=== PATIENT | male | born 1955 | race Caucasian/White ===

== ENCOUNTER 2021-03-30 15:51 | Emergency (ER) | payer BC, SELFPAY ==
[2021-03-30 17:06] VITALS: BP 173/94; PULSE 96; RESP 16; TEMP 36.6; O2SAT 99
--- NOTE | 2021-03-30 17:52 | ED.URI ---
HPI - URI/Sore Throat General Chief Complaint: Upper Respiratory Infection Stated Complaint: Sore Throat,Stuffy Nose,Sinus Time Seen by Provider: 03/30/21 17:30 Source: patient and RN notes reviewed Mode of arrival: ambulatory Limitations: no limitations History of Present Illness HPI Narrative: Edmond is a 65-year-old male patient who ambulated into the [facility]. Patient states has had a sore throat since Friday. Patient states he has a productive cough with green mucus. Patient states his sinuses are becoming sore. Patient has a history of bronchitis. Patient was exposed to family members positive for Covid last week. Related Data Home Medications Medication Instructions Recorded Confirmed atorvastatin 10 mg PO DAILY 03/30/21 03/30/21 losartan 50 mg PO DAILY 03/30/21 03/30/21 omeprazole 20 mg PO DAILY 03/30/21 03/30/21 Allergies Allergy/AdvReac Type Severity Reaction Status Date / Time No Known Allergies Allergy Verified 03/30/21 17:55 Review of Systems Review of Systems: CONSTITUTIONAL: Denies body aches, fever,+ chills, or sweats. EYES: Denies visual changes, redness, or discharge. ENT: Denies rhinorrhea, +congestion, +sore throat, denies otalgia. CARDIOVASCULAR: Denies chest pain, palpitations, or edema. RESPIRATORY: + cough none dyspnea. GASTROINTESTINAL: Denies abdominal pain, nausea, vomiting, or diarrhea. GENITOURINARY: Denies dysuria or hematuria. SKIN: Denies rash, itching, or wounds. MUSCULOSKELETAL: Denies back pain, joint pain, or myalgia. NEUROLOGIC: Denies headache, numbness, tingling, or weakness. PSYCH: Denies depression or anxiety. All systems reviewed & are unremarkable except as noted in HPI and below PMFSH Comments At time of signature, I have reviewed and agree with nursing past medical, surgical, social and family history unless otherwise noted. Please see nursing chart for further information. There is no relevant family history pertinent to the presenting complaint Exam Narrative: GENERAL: Well-appearing, well-nourished, and in no acute distress. HEAD: Normocephalic, atraumatic. EYES: EOMI. No redness or drainage. Conjunctivae normal. ENT: Mucous membranes pink and moist. Nares clear. No rhinorrhea. Bilateral tympanic membranes are dull with no fluid noted. No erythema is noted. Posterior pharynx is erythemic with mild edema moderate amount of thick white postnasal drainage is noted. Uvula midline. NECK: Normal AROM. Supple. No lymphadenopathy. CHEST: No respiratory distress. Clear to auscultation with occasional bilateral wheeze. HEART: Regular rate and rhythm. No murmur appreciated. Normal peripheral pulses. ABDOMEN: Soft, nontender, nondistended, normal active bowel sounds. MUSCULOSKELETAL: No bony tenderness. EXTREMITIES: Normal range of motion. No edema. SKIN: Warm, dry, no rash. Capillary refill normal. Normal skin turgor. NEURO: No focal deficits. Alert and oriented x3. Gait steady. PSYCH: Normal affect. No signs of depression or anxiety. Course Vital Signs Vital signs: Vital Signs Temperature 36.6 C 03/30/21 17:06 Pulse Rate 96 03/30/21 17:06 Respiratory Rate 16 03/30/21 17:06 Blood Pressure 173/94 H 03/30/21 17:06 Pulse Oximetry 99 03/30/21 17:06 Temperature 36.6 C 03/30/21 17:06 Pulse Rate 96 03/30/21 17:06 Respiratory Rate 16 03/30/21 17:06 Blood Pressure 173/94 H 03/30/21 17:06 Pulse Oximetry 99 03/30/21 17:06 MDM - URI/Sore Throat MDM Narrative Medical decision making narrative: Patient's rapid COVID-19 is positive. He will be given albuterol and prednisone. Patient to notify his primary care physician on Friday of his Covid positive status. Go to the ER immediately Differential Diagnosis Differential diagnosis: Likely upper respiratory infection, otitis media, viral infection and other Lab Data Labs: Lab Results 03/30/21 Range/Units 17:30 POC SARS CoV-2 Ag Positive (Negative) St
== END 2021-03-30 18:00 | disposition home or self-care (01) ==
PROVIDERS: Emergency Provider Nurse Practitioner Family; PCP Internal Medicine
DX: U07.1 COVID-19 (principal)
CPT/HCPCS: 87081; 87426; 87804; 87880; 99213; C9803; G0463

== ENCOUNTER 2021-04-07 12:03 | Inpatient (IN) | payer BC, SELFPAY ==
[2021-04-07] VITALS (17 sets, daily range): BP systolic 128–153; BP diastolic 70–96; PULSE 68–97; RESP 19–36; TEMP 36.9–37; O2SAT 89–98; BMI 28.9
--- NOTE | ~2021-04-07 | XR_ITS ---
EXAMINATION: XR chest 1V portable DATE: 04/13/2021 07:58 INDICATION: COVID pneumonia TECHNIQUE: frontal view of the chest was obtained. COMPARISON: Chest radiograph dated 04/09/2021 FINDINGS: No significant interval change in diffuse bilateral patchy airspace opacities consistent with COVID p neumonia. No pleural effusion or pneumothorax. The cardiomediastinal silhouette is normal. IMPRESSION: 1. Unchanged diffuse bilateral lung disease consistent with COVID 19 pneumonia. Reviewed, dictated and finalized at location A. TRONIC PARTS DESIGNER
--- NOTE | ~2021-04-07 | CT_ITS ---
EXAMINATION: CTA chest PE protocol DATE: 04/07/2021 14:12 INDICATION: Shortness of breath. COVID-19 pneumonia. TECHNIQUE: Computed tomography angiography (CTA) of the chest was performed with 100 mL Omnipaque-350 intravenous contrast timed to evaluate the pulmonary arteries. Coronal maximum intensity projection 3D-reconstructions were created by the technologist. Automated exposure control and iterative reconst ruction technique were employed. The dose-length product was 445.45 mGy-cm. COMPARISON: None. FINDINGS: The visualized portions of the lung bases demonstrate patchy groundglass opacities and craz y paving involving all lobes and airspace opacities in the lower lobes. There are small right and tra ce left pleural effusions. The heart size is normal. No pericardial effusion. There is no pulmonary e mbolus. There is a small sliding hiatal hernia. There are cysts in right kidney measuring up to 4.9 c m. There is mild thoracic spondylosis. IMPRESSION: 1. No pulmonary embolus. Sensitivity is moderately decreased in the segmental arteries by motion sam fact. 2. Diffuse lung disease, consistent with COVID-19 pneumonia. 3. Small right and trace left pleural effusions. Reviewed, dictated and finalized at location A. RTMENT MANAGER IMPRESSION: 1. No pulmonary embolus. Sensitivity is moderately decreased in the segmental a rteries by motion artifact. 2. Diffuse lung disease, consistent with COVID-19 pneumonia. 3. Small right and trace left pleural effusions.
--- NOTE | ~2021-04-07 | XR_ITS ---
EXAMINATION: XR chest 1V portable DATE: 04/09/2021 12:27 INDICATION: COVID-19 pneumonia. TECHNIQUE: A single frontal view of the chest was obtained. COMPARISON: Chest single view 04/07/2021, chest CT 04/07/2021 FINDINGS: The lung volumes are small. There are airspace opacities in all lung zones bilaterally, wor st in the mid and lower lung zones. No pleural effusion or pneumothorax. The heart size is normal. IMPRESSION: 1. Stable diffuse lung disease, consistent with COVID-19 pneumonia. Reviewed, dictated and finalized at location B. NCT POLITICAL SCIENCE INSTRUCTOR
--- NOTE | ~2021-04-07 | XR_ITS ---
EXAMINATION: XR chest 1V portable DATE: 04/07/2021 13:01 INDICATION: Dyspnea. COVID-19 pneumonia. TECHNIQUE: A single frontal view of the chest was obtained. COMPARISON: None. FINDINGS: There are airspace opacities in all lung zones bilaterally, worst in the mid and lower lung zones. No pleural effusion or pneumothorax. The heart size is normal. IMPRESSION: 1. Diffuse lung disease, consistent with COVID-19 pneumonia. Reviewed, dictated and finalized at location A. CAL ASSOCIATE
--- NOTE | ~2021-04-07 | XR_ITS ---
XR chest 1V portable DATE: 04/16/2021 11:45 INDICATION: Dyspnea TECHNIQUE: Portable AP chest on 04/16/2021 1140 hours COMPARISON: 04/13/2021 portable AP chest at 0736 hours FINDINGS: There are extensive diffuse patchy bilateral pulmonary infiltrates which appear minimally i mproved since 04/13/2021. Normal heart size. No pleural effusion. No pneumothorax. Diffuse osteopenia. IMPRESSION: Minimal improvement of extensive patchy bilateral pulmonary infiltrates since 04/13/2021 Reviewed, dictated and finalized at location A. F TECHNICIAN IMPRESSION: Minimal improvement of extensive patchy bilateral pulmonary infiltr ates since 04/13/2021
--- NOTE | 2021-04-07 12:09 | ECG_ITS ---
Measurements Intervals Brooks Rate: 92 P: 27 MI: 155 QRS: -15 QRSD: 102 T: 0 QT: 352 QTc: 436 Interpretive Statements SINUS RHYTHM INCOMPLETE RIGHT BUNDLE BRANCH BLOCK VOLTAGE CRITERIA FOR LVH BORDERLINE R WAVE PROGRESSION, ANTERIOR LEADS BORDERLINE T WAVE ABNORMALITY- ANT/INF LEADS BASELINE ARTIFACT- II, III, AVR, AVF, V1-V6 BORDERLINE ECG Electronically Signed On 04-07-2021 12:31:58 DENSITY CONTROL PUNCHER by Seth Barlow D.O.
--- NOTE | 2021-04-07 12:16 | ED.SOB ---
HPI - SOB/Dyspnea General Chief Complaint: Shortness of Breath/Dyspnea Stated Complaint: dyspnea Time Seen by Provider: 04/07/21 12:13 Source: patient Mode of arrival: ambulatory Limitations: no limitations History of Present Illness HPI Narrative: Patient is a 65-year-old male complaining of worsening shortness of breath worse with exertion, that started 1 week ago. Patient states that he was diagnosed with Covid 8 days ago. Related Data Home Medications Medication Instructions Recorded Confirmed atorvastatin 10 mg PO DAILY 03/30/21 03/30/21 losartan 50 mg PO DAILY 03/30/21 03/30/21 omeprazole 20 mg PO DAILY 03/30/21 03/30/21 Allergies Allergy/AdvReac Type Severity Reaction Status Date / Time No Known Allergies Allergy Verified 04/07/21 12:09 Review of Systems Review of Systems: All systems reviewed & are unremarkable except as noted in HPI and below Constitutional: Constitutional: Denies chills, Denies excessive sweating, Denies fever(s), Denies headache(s), Denies lethargy, Denies malaise, Denies weakness and Denies weight loss Eyes: Eyes: Denies blurry vision, Denies change in vision and Denies loss of vision ENT: Denies dizziness, Denies ear discharge, Denies headache(s), Denies lip swelling, Denies epistaxis, Denies nasal congestion, Denies neck pain, Denies throat swelling and Denies tongue swelling Cardiovascular: Cardiovascular: Denies chest pain, Denies chest pain at rest, Denies chest pain with activity, Denies diaphoresis, Denies rapid heart rate, Denies edema, Denies irregular heart rhythm, Denies lightheadedness, Denies palpitations, Denies dyspnea and Denies dyspnea on exertion Respiratory: Respiratory: Denies chest congestion, Denies hemoptysis, Denies dyspnea and Denies dyspnea on exertion Gastrointestinal: Gastrointestinal: Denies abdominal pain, Denies melena, Denies hematochezia, Denies diarrhea, Denies nausea, Denies vomiting and Denies hematemesis Musculoskeletal: Musculoskeletal: Denies abnormal gait, Denies deformity, Denies joint swelling, Denies limited range of motion, Denies neck pain and Denies numbness Neurologic: Denies Abnormal speech present, Denies abnormal gait, Denies confusion, Denies dizziness, Denies headache(s), Denies focal weakness, Denies loss of vision, Denies numbness, Denies Other visual disturbances, Denies Sensory deficit (Neuro) and Denies weakness Psychiatric: Psychiatric: Denies confusion, Denies depression, Denies auditory hallucinations, Denies homicidal ideation and Denies suicidal ideation Endocrine: Endocrine: Denies cold intolerance, Denies excessive sweating, Denies fatigue, Denies heat intolerance and Denies palpitations Hematologic/Lymphatic: Hematologic/Lymphatic: Denies easy bleeding and Denies easy bruising Allergic/Immunologic: Allergic/Immunologic: Denies lip swelling, Denies throat swelling and Denies tongue swelling PMFSH Comments Past medical history: Hypertension Family history: Hypertension Social history: Non-smoker occasional EtOH use, no drug use Exam Const: General: cooperative, healthy appearing, comfortable, no acute distress, well developed, alert and awake; No confusion Orientation/consciousness: oriented to person, oriented to place, oriented to time, patient oriented x3 and No confusion Limitations: no limitations HENMT: Head: normal to inspection, normocephalic and atraumatic Ears: hearing grossly normal bilaterally, TM normal on the right and TM normal on the left General nose exam: Normal external nose present, Normal nares present and No nasal discharge present Face and sinus: normal facial exam Mouth: Yes Normal oral and palatal mucosa present, Yes lip normal, Yes tongue normal and Yes oropharynx normal Throat: posterior oropharynx normal, tonsils normal and uvula midline Eyes: General: appearance normal, both eyes and all related structures Pupils: Equal, round and reactive pupils present EOM: EOMs intact bilaterally Neck: N
[2021-04-07] MEDS: DEXAMETHASONE SOD PHOS INJ 4 MG/ML VIAL 10 MG IV PUSH (12:31)
[2021-04-07 12:33] LABS: Basophils Absolute Auto 0.1 K/mm3 (0.0-0.1); Basophils Percent Auto 0.3 % (0.2-1.2); Eosinophils Percent Auto 0.1 % (0-4.4); Hematocrit 44.3 % (42.0-52.0); Hemoglobin 15.4 g/dL (14.0-18.0); Immature Granulocyte Absolute 0.18 K/mm3 (0.00-0.031); Lymphocytes Absolute Auto 0.73 K/mm3 (0.9-3.2); Mean Corpuscular HGB Conc 34.8 g/dl (32-36); Mean Corpuscular Volume 92.1 fl (80-100); Mean Platelet Volume 10.2 fl (7.4-10.4); Monocytes Absolute Auto 0.7 K/mm3 (0.1-0.6); Monocytes Percent Auto 3.8 % (2.6-8.5); Neutrophils Absolute Auto 16.4 K/mm3 (1.3-6.7); Neutrophils Percent Auto 90.8 % (45.5-73.1); Platelet Count Result 192 k/mm3 (150-375); Red Blood Count 4.81 M/mm3 (4.6-6.20); Red Cell Distribution Width 12.8 % (11.5-14.5); White Blood Count 18.1 K/mm3 (4.5-10.0)
[2021-04-07 12:42] LABS: Alanine Aminotransferase 51 U/L (4-50); Alkaline Phosphatase 74 U/L (38-126); Anion Gap 12 mmol/L (8-16); Aspartate Amino Transferase 40 U/L (17-59); Bilirubin,Total 0.7 mg/dL (0.2-1.3); Blood Urea Nitrogen 20 mg/dL (9-20); Calcium 9.7 mg/dL (8.4-10.2); Carbon Dioxide 20 mmol/L (22-30); Chloride 102 mmol/L (98-107); Estimated CRCL calculation 67 ml/min; Estimated Glomerular Filt Rate > 60; Glucose 125 mg/dL (65-110); Potassium 3.8 mmol/L (3.4-5.0); Sodium 134 mmol/L (137-145)
[2021-04-07 12:53] LABS: Troponin I < 0.012 ng/mL (0.000-0.034)
[2021-04-07 12:54] LABS: Alveolar/Arterial O2 Gradient 102.6 mmHg; Base Excess ABG -1.5 mEq/l (+/-2.0); Carboxyhemoglobin 0.8 % THb (0-2.0); Fractional Inspired Oxygen 28 %; HCO3 ABG 20.4 mEq/l (22.0-26.0); Methemoglobin ABG 0.4 %THb (0-1.5); Oxygen Content ABG 20.5 %vol (16.0-22.0); Oxygen Saturation ABG 94.3 % (95.0-100.0); Oxyhemoglobin 92.3 % THb (90.0-100.0); PCO2 ABG 27.7 mmHg (35.0-45.0); PO2 ABG 64.4 mmHg (80.0-100.0); Reduced Hemoglobin 6.5 %THb (0-5.0); Site Drawn LEFT RADIAL; Total Hemoglobin 15.8 g/dL (12.0-18.0); pH ABG 7.484 (7.350-7.450)
[2021-04-07 12:55] LABS: Device NASAL CANNULA; Modified Allen's Test Pass
[2021-04-07 12:59] LABS: INR 1.1; Prothrombin Time 14.3 Seconds (11.1-14.7)
[2021-04-07 13:00] LABS: Partial Thromboplastin Time 30.8 SECONDS (22.3-36.8)
[2021-04-07] MEDS: SODIUM CHLORIDE 0.9% IV 1,000 ML 250 ML IV CONT (14:59)
[2021-04-07] MEDS: REMDESIVIR 200 MG/NS 250 ML 200 MG/250 ML BAG 250 MG IVPB (15:12)
[2021-04-07 16:09] LABS: Troponin I < 0.012 ng/mL (0.000-0.034)
[2021-04-07 16:19] LABS: CRP 26.7 mg/dL (<1.0)
[2021-04-07 16:40] LABS: Lactate Dehydrogenase 505 U/L (313-618)
[2021-04-07 16:43] LABS: Procalcitonin 0.2 ng/mL
--- NOTE | 2021-04-07 19:10 | ADMGEN ---
This patient, Vamsi Ballard, was admitted to [address] [place] [address] Room 300-01 at 1840. Patient/family oriented to hospital policies and general routines including ID bracelet, bed and alarms, visiting hours, pain management, procedures, bathroom and other care routines, personal items, smoking policy, room service/diet, and visiting hours. Information on how to activate the Rapid Response Team has been discussed. Patient/Family are encouraged to report perceived risks to care and to ask questions if they do not understand what they are told or what they should do.
--- NOTE | 2021-04-07 21:30 | PM.IMHP ---
H&P: HPI History of Present Illness Date/Time: 04/07/21 21:30 Chief Complaint: Shortness of breath. Narrative: This is a very pleasant 65-year-old male with hypertension, hyperlipidemia, Lyme disease, and GERD who presented to the emergency department earlier today via private vehicle from home for evaluation of shortness of breath. He has not been feeling well for nearly 10 days with multiple symptoms to include generalized malaise, sore throat, congestion, decreased appetite, diarrhea, body aches, fever, and cough occasionally productive of clear sputum. He tested positive for COVID-19 at a local urgent care last Friday and he was prescribed doxycycline and prednisone at that time. He felt a bit better earlier on this week however over the last 2 days he has felt much worse with increasing shortness of breath, pleuritic chest pain, and a pretty continuous cough. On arrival to the emergency department today his SpO2 was 89% on room air and he is now on 2 L nasal cannula with an SpO2 in the low 90s. CTA of the chest showed diffuse lung disease consistent with COVID pneumonia and he is being admitted in this setting. He has not yet received a COVID vaccination. Review of Systems Review of Systems: Twelve systems were reviewed and are negative except for as per HPI. [facility] Past Medical History Medical History (Updated 04/07/21 @ 22:14 by Chioma Mitchell PA-C) Gastroesophageal reflux disease Hyperlipidemia Hypertension Lyme disease (09/2020) Surgical History Surgical History (Updated 04/07/21 @ 22:14 by Chioma Mitchell PA-C) History of arthroscopy of right knee Family History Family History (Updated 04/07/21 @ 22:14 by Chioma Mitchell PA-C) Other Hypertension Social History Social History (Updated 04/07/21 @ 22:16 by Chioma Mitchell PA-C) Social History: The patient is and lives with his in [place]. 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 Nonsmoker. Consumes approximately 3 to 4 alcoholic beverages a week. No illicit substance use. He designates his , Prinecss Crowe, as his surrogate decision maker. Code status: Full code. Meds Home Medications and Allergies Home Medications Medication Instructions Recorded Confirmed Type albuterol sulfate [ProAir HFA] 2 puff INHALATION QID PRN #8.5 g 12/31/21 01/08/22 Rx atorvastatin 10 mg PO DAILY 03/30/21 04/07/21 History losartan 50 mg PO DAILY 03/30/21 04/07/21 History omeprazole 20 mg PO DAILY 03/30/21 04/07/21 History prednisone 50 mg PO DAILY 7 Days #7 tablet 03/30/21 04/07/21 Rx Allergies Allergy/AdvReac Type Severity Reaction Status Date / Time No Known Allergies Allergy Verified 04/07/21 12:09 Vital Signs Vital Signs - 24 hr 04/07/21 12:04 04/07/21 12:19 04/07/21 12:27 Temperature 98.6 F Pulse Rate 97 95 90 Respiratory Rate 19 36 H Blood Pressure 153/96 H Pulse Oximetry 89 L 93 94 04/07/21 13:07 04/07/21 13:15 04/07/21 13:16 Temperature Pulse Rate 88 86 88 Respiratory Rate 33 H 32 H 34 H Blood Pressure 130/83 Pulse Oximetry 92 91 91 04/07/21 13:30 04/07/21 13:31 04/07/21 13:45 Temperature Pulse Rate 83 90 88 Respiratory Rate 32 H 30 H 31 H Blood Pressure 128/79 Pulse Oximetry 92 94 92 04/07/21 13:46 04/07/21 13:47 04/07/21 15:31 Temperature Pulse Rate 89 86 74 Respiratory Rate 32 H 32 H 33 H Blood Pressure 133/83 130/84 Pulse Oximetry 91 92 98 04/07/21 16:06 04/07/21 16:15 04/07/21 16:17 Temperature Pulse Rate 71 74 68 Respiratory Rate 35 H 33 H 27 H Blood Pressure 148/75 H Pulse Oximetry 95 94 95 04/07/21 18:26 04/07/21 20:00 Temperature 98.4 F Pulse Rate 74 84 Respiratory Rate 24 H 20 Blood Pressure 146/89 H 136/70 Pulse Oximetry 97 90 Exam Narrative: General: Moderately ill-appearing male sitting up in bed. Weight: 81.4 kg. BMI: 29.0. HEENT: PERRL, EOMI. Sclerae anicteric. Conjunctiva mildly injected. Oral mucosa moist. Oropharynx freeman
[2021-04-08] VITALS (8 sets, daily range): BP systolic 122–140; BP diastolic 66–79; PULSE 64–87; RESP 18–20; TEMP 36.2–38.3; O2SAT 88–94
[2021-04-08 06:20] LABS: Hematocrit 39.5 % (42.0-52.0); Hemoglobin 13.6 g/dL (14.0-18.0); Mean Corpuscular HGB Conc 34.4 g/dl (32-36); Mean Corpuscular Hemoglobin 31.6 pg (26-34); Mean Corpuscular Volume 91.9 fl (80-100); Mean Platelet Volume 10.2 fl (7.4-10.4); Platelet Count Result 188 k/mm3 (150-375); Red Cell Distribution Width 12.9 % (11.5-14.5); White Blood Count 14.2 K/mm3 (4.5-10.0)
[2021-04-08 06:30] LABS: INR 1.1; Prothrombin Time 14.2 Seconds (11.1-14.7)
[2021-04-08 06:44] LABS: Alanine Aminotransferase 41 U/L (4-50); Albumin Level 3.5 g/dL (3.5-5.1); Alkaline Phosphatase 59 U/L (38-126); Anion Gap 9 mmol/L (8-16); Aspartate Amino Transferase 30 U/L (17-59); Bilirubin,Total 0.5 mg/dL (0.2-1.3); Blood Urea Nitrogen 21 mg/dL (9-20); CRP 24.8 mg/dL (<1.0); Carbon Dioxide 22 mmol/L (22-30); Chloride 104 mmol/L (98-107); Estimated CRCL calculation 66 ml/min; Estimated Glomerular Filt Rate > 60; Glucose 124 mg/dL (65-110); Lactate Dehydrogenase 551 U/L (313-618); Magnesium 2.2 mg/dL (1.6-2.3); Potassium 3.9 mmol/L (3.4-5.0); Sodium 135 mmol/L (137-145)
[2021-04-08] MEDS: DEXAMETHASONE 0.5 MG TABLET 2 MG PO (08:15)
[2021-04-08] MEDS: LOSARTAN POTASSIUM 50 MG TABLET PO (08:15)
[2021-04-08] MEDS: PANTOPRAZOLE 40 MG TABLET PO (08:15)
[2021-04-08] MEDS: DEXAMETHASONE 4 MG TABLET PO (08:15)
[2021-04-08] MEDS: ENOXAPARIN 40 MG/0.4 ML SYRINGE SUB-Q (08:16)
[2021-04-08] MEDS: ATORVASTATIN 10 MG TABLET PO (08:16)
[2021-04-08] MEDS: ACETAMINOPHEN 325 MG TABLET 650 MG PO ×2 (09:32→20:36)
[2021-04-08] MEDS: guaiFENesin 12 HR 600 MG TABCR PO ×2 (09:32→20:36)
[2021-04-08] MEDS: REMDESIVIR 100 MG/NS 250 ML 100 MG/250 ML BAG 250 MG IVPB (10:15)
--- NOTE | 2021-04-08 12:53 | PM.IMPN ---
Progress Note: A&P Assessment and Plan (1) Acute respiratory failure with hypoxia: Code(s): J96.01 - Acute respiratory failure with hypoxia Status: Acute Assessment and Plan: Secondary to COVID pneumonia. No pulmonary embolism noted on chest CTA and though sensitivity was moderately decreased due to motion in the segmental arteries, PE is felt to be unlikely. He is currently requiring 3 L per nasal cannula to keep SpO2 in the low to mid 90s. Wean oxygen as tolerated. Goal sats 92% or above (2) Pneumonia due to 2019 novel coronavirus: Code(s): U07.1 - COVID-19; J12.82 - Pneumonia due to coronavirus disease 2019 Status: Acute Assessment and Plan: Positive outpatient test 03/30/21 with symptom onset 10 days prior to presentation. CXR shows diffuse lung disease consistent with COVID 19 pneumonia Continue dexamethasone and remdesivir #2. Monitor LFTs while on remdesivir. ALT is normal Given symptom onset and elevated white blood cell count, continue treatment with ceftriaxone and azithromycin for concomitant bacterial pneumonia Sputum culture is pending Trend inflammatory markers Supportive care to include bronchodilators, expectorants, antipyretics, incentive spirometry Continue isolation precautions Patient has not been vaccinated for COVID-19 (3) Hypertension: Code(s): I10 - Essential (primary) hypertension Status: Acute Assessment and Plan: Blood pressures were reviewed and they are stable. Last BP 131/79 Continue losartan Monitor blood pressures daily. (4) Hyperlipidemia: Code(s): E78.5 - Hyperlipidemia, unspecified Status: Acute Assessment and Plan: LFTs within normal limits. Continue statin Subjective Date/time seen: 04/08/21 12:53 Interval history: Date of service: 04/08/2021 Vamsi Crowe is a 65-year-old male with a history of hypertension, hyperlipidemia, Lyme disease, and GERD who is seen in follow-up for COVID-19 pneumonia. He is starting to feel a bit better today. His shortness of breath has improved, though he does endorse dyspnea on exertion. Also endorses conversational dyspnea. He has a productive cough with mostly white sputum, though states sometimes it is yellow-greenish. This morning, he was having chills. He was also noted to have a low-grade fever. He denies nausea or vomiting. No abdominal pain. No diarrhea. Denies chest pain. No palpitations. He does have some neck discomfort from lying in bed. He had a hard time sleeping last night and he relates this to being on steroids. His appetite has been good. He has no other concerns at this time. We had a long talk about managing COVID-19 and what to expect while he was hospitalized. With the patient's permission, I also spoke with his daughter, Genesis to provide updates answer questions. Review of Systems Review of Systems: All systems reviewed & are unremarkable except as noted in HPI and below Exam Narrative: Mr. Crowe is a well-nourished, well-appearing 65-year-old male who is lying supine in bed. He appears comfortable and is in NARD. Neuro: awake, alert and oriented x4, speech clear, no focal neuro deficits noted HEENMT: normocephalic, atraumatic, EOMI, sclerae anicteric Neck: supple, no lymphadenopathy Respiratory: Diminished breath sounds bilaterally, nonlabored breathing Cardio: regular rate, regular rhythm with S1-S2 Abdomen: nondistended, normoactive bowel sounds, soft, nontender to palpation Extremities: no edema, erythema, or tenderness to palpation, DP pulses 2+ bilaterally Skin: no rashes or lesions, warm and dry Psych: appropriate mood and affect, judgment and insight intact Objective Data Vital Signs Vital Signs: Vital Signs - 24 hr 04/07/21 13:07 04/07/21 13:15 04/07/21 13:16 Temperature Pulse Rate 88 86 88 Respiratory Rate 33 H 32 H 34 H Blood Pressure 130/83 Pulse Oximetry 92 91 91
[2021-04-09] VITALS (10 sets, daily range): BP systolic 111–136; BP diastolic 66–82; PULSE 59–70; RESP 14–22; TEMP 36.2–37.2; O2SAT 85–97
[2021-04-09 06:51] LABS: Hematocrit 40.5 % (42.0-52.0); Hemoglobin 14.2 g/dL (14.0-18.0); Mean Corpuscular HGB Conc 35.1 g/dl (32-36); Mean Corpuscular Hemoglobin 32.3 pg (26-34); Mean Corpuscular Volume 92.3 fl (80-100); Platelet Count Result 216 k/mm3 (150-375); Red Blood Count 4.39 M/mm3 (4.6-6.20); Red Cell Distribution Width 12.8 % (11.5-14.5); White Blood Count 16.6 K/mm3 (4.5-10.0)
[2021-04-09 07:05] LABS: INR 1.3; Prothrombin Time 15.5 Seconds (11.1-14.7)
[2021-04-09 07:24] LABS: Alanine Aminotransferase 41 U/L (4-50); Albumin Level 3.6 g/dL (3.5-5.1); Alkaline Phosphatase 63 U/L (38-126); Anion Gap 10 mmol/L (8-16); Aspartate Amino Transferase 30 U/L (17-59); Bilirubin,Total 0.5 mg/dL (0.2-1.3); Blood Urea Nitrogen 26 mg/dL (9-20); CRP 11.6 mg/dL (<1.0); Carbon Dioxide 22 mmol/L (22-30); Chloride 105 mmol/L (98-107); Estimated CRCL calculation 66 ml/min; Estimated Glomerular Filt Rate > 60; Glucose 115 mg/dL (65-110); Potassium 4.1 mmol/L (3.4-5.0); Sodium 137 mmol/L (137-145)
[2021-04-09] MEDS: ACETAMINOPHEN 325 MG TABLET 650 MG PO ×2 (08:24→19:38)
[2021-04-09] MEDS: ENOXAPARIN 40 MG/0.4 ML SYRINGE SUB-Q (08:25)
[2021-04-09] MEDS: DEXAMETHASONE 0.5 MG TABLET 2 MG PO (08:25)
[2021-04-09] MEDS: DEXAMETHASONE 4 MG TABLET PO (08:25)
[2021-04-09] MEDS: LOSARTAN POTASSIUM 50 MG TABLET PO (08:25)
[2021-04-09] MEDS: PANTOPRAZOLE 40 MG TABLET PO (08:25)
[2021-04-09] MEDS: ATORVASTATIN 10 MG TABLET PO (08:25)
[2021-04-09] MEDS: guaiFENesin 12 HR 600 MG TABCR PO ×2 (08:25→19:48)
[2021-04-09] MEDS: ALBUTEROL SULFATE (*SP) INHALER 2 PUFF INHALATION (10:24)
--- NOTE | 2021-04-09 11:10 | PM.IMPN ---
Progress Note: A&P Assessment and Plan (1) Acute respiratory failure with hypoxia: Code(s): J96.01 - Acute respiratory failure with hypoxia Status: Acute Assessment and Plan: Secondary to COVID pneumonia. No pulmonary embolism noted on chest CTA and though sensitivity was moderately decreased due to motion in the segmental arteries, PE is felt to be unlikely. Previously requiring 3 L O2. He had increased O2 demand today and now requires 12 L per nasal cannula Will proceed with continuous pulse oximetry monitoring Wean oxygen as tolerated. Goal sats 92% or above (2) Pneumonia due to 2019 novel coronavirus: Code(s): U07.1 - COVID-19; J12.82 - Pneumonia due to coronavirus disease 2019 Status: Acute Assessment and Plan: Positive outpatient test 03/30/21 with symptom onset 10 days prior to presentation. CXR shows diffuse lung disease consistent with COVID 19 pneumonia Continue dexamethasone and remdesivir #3. Monitor LFTs while on remdesivir. ALT is normal Initiate baricitinib given increased oxygen demand Repeat CXR to reassess Continue treatment with ceftriaxone and azithromycin for concomitant bacterial pneumonia given symptom onset and leukocytosis. Slight increase in WBC again today which could be related to steroids Sputum culture not performed due to oropharyngeal contamination Trend inflammatory markers Supportive care to include bronchodilators, expectorants, antipyretics, incentive spirometry Continue isolation precautions Patient has not been vaccinated for COVID-19 (3) Hypertension: Code(s): I10 - Essential (primary) hypertension Status: Acute Assessment and Plan: Blood pressures were reviewed and they are stable. Last BP 136/82 Continue losartan Monitor blood pressures daily. (4) Hyperlipidemia: Code(s): E78.5 - Hyperlipidemia, unspecified Status: Acute Assessment and Plan: LFTs within normal limits. Continue statin Subjective Date/time seen: 04/09/21 11:10 Interval history: Date of service: 04/09/2021 Vamsi Crowe is a 65-year-old male with a history of hypertension, hyperlipidemia, Lyme disease, and GERD who is seen in follow-up for COVID-19 pneumonia. He had increased oxygen requirements this morning. He was feeling well last night and slept well through the night but this morning woke up feeling poorly. He had increased shortness of breath. He endorses occasional cough. Denies fever, chills, sweats, nausea, vomiting. Denies dizziness or lightheadedness. He has poor appetite but is trying to eat regularly. At the patients request, I spoke with his Princess via phone for 15 minutes to provide updates and answer questions. Review of Systems Review of Systems: All systems reviewed & are unremarkable except as noted in HPI and below Exam Narrative: Mr. Crowe is a well-nourished, well-appearing 65-year-old male who is lying supine in bed. He appears comfortable and is in NARD. Neuro: awake, alert and oriented x4, speech clear, no focal neuro deficits noted HEENMT: normocephalic, atraumatic, EOMI, sclerae anicteric Neck: supple, no lymphadenopathy Respiratory: Diminished breath sounds bilaterally, nonlabored breathing, able to speak in complete sentences, no accessory muscle use or retractions Cardio: regular rate, regular rhythm with S1-S2 Abdomen: nondistended, normoactive bowel sounds, soft, nontender to palpation Extremities: no edema, erythema, or tenderness to palpation, DP pulses 2+ bilaterally Skin: no rashes or lesions, warm and dry Psych: appropriate mood and affect, judgment and insight intact Objective Data Vital Signs Vital Signs: Vital Signs - 24 hr 04/08/21 12:00 04/08/21 16:00 04/08/21 16:55 Temperature 97.1 F L 97.3 F L Pulse Rate 70 64 Respiratory Rate 18 18 Blood Pressure 132/76 122/66 Pulse Oximetry 94 88 L 90 04/08/21 20:00 04/09/21 00:00 04/09/21 00
[2021-04-09] MEDS: REMDESIVIR 100 MG/NS 250 ML 100 MG/250 ML BAG 250 MG IVPB (11:31)
[2021-04-09 11:58] LABS: Basophils Percent Auto 0.1 % (0.2-1.2); Eosinophils Percent Auto 0.1 % (0-4.4); Hematocrit 39.7 % (42.0-52.0); Hemoglobin 13.9 g/dL (14.0-18.0); Immature Granulocyte Absolute 0.13 K/mm3 (0.00-0.031); Immature Granulocyte Percent A 0.8 % (0-0.5); Lymphocytes Absolute Auto 0.81 K/mm3 (0.9-3.2); Lymphocytes Percent Auto 4.9 % (18.3-44.2); Mean Corpuscular Hemoglobin 32.3 pg (26-34); Mean Corpuscular Volume 92.3 fl (80-100); Mean Platelet Volume 10.3 fl (7.4-10.4); Monocytes Absolute Auto 0.8 K/mm3 (0.1-0.6); Monocytes Percent Auto 5.1 % (2.6-8.5); Neutrophils Absolute Auto 14.7 K/mm3 (1.3-6.7); Platelet Count Result 199 k/mm3 (150-375); Red Cell Distribution Width 12.9 % (11.5-14.5); White Blood Count 16.5 K/mm3 (4.5-10.0)
[2021-04-09 12:12] LABS: Alanine Aminotransferase 38 U/L (4-50); Aspartate Amino Transferase 34 U/L (17-59); Estimated CRCL calculation 73 ml/min; Estimated Glomerular Filt Rate > 60
[2021-04-09] MEDS: BARICITINIB 2 MG TABLET 4 MG PO (16:32)
[2021-04-10] VITALS (9 sets, daily range): BP systolic 101–122; BP diastolic 60–73; PULSE 54–94; RESP 14–18; TEMP 36.1–36.8; O2SAT 85–95
[2021-04-10 05:54] LABS: Basophils Percent Auto 0.2 % (0.2-1.2); Eosinophils Percent Auto 0.1 % (0-4.4); Hemoglobin 13.9 g/dL (14.0-18.0); Immature Granulocyte Absolute 0.18 K/mm3 (0.00-0.031); Immature Granulocyte Percent A 1.1 % (0-0.5); Lymphocytes Absolute Auto 1.45 K/mm3 (0.9-3.2); Lymphocytes Percent Auto 8.9 % (18.3-44.2); Mean Corpuscular HGB Conc 33.9 g/dl (32-36); Mean Corpuscular Hemoglobin 31.9 pg (26-34); Mean Platelet Volume 10.6 fl (7.4-10.4); Monocytes Absolute Auto 0.7 K/mm3 (0.1-0.6); Monocytes Percent Auto 4.2 % (2.6-8.5); Neutrophils Percent Auto 85.5 % (45.5-73.1); Platelet Count Result 216 k/mm3 (150-375); Red Blood Count 4.36 M/mm3 (4.6-6.20); Red Cell Distribution Width 12.7 % (11.5-14.5); White Blood Count 16.4 K/mm3 (4.5-10.0)
[2021-04-10 06:05] LABS: INR 1.3; Prothrombin Time 15.5 Seconds (11.1-14.7)
[2021-04-10 06:07] LABS: Alanine Aminotransferase 38 U/L (4-50); Albumin Level 3.4 g/dL (3.5-5.1); Alkaline Phosphatase 52 U/L (38-126); Anion Gap 7 mmol/L (8-16); Aspartate Amino Transferase 27 U/L (17-59); Bilirubin,Total 0.5 mg/dL (0.2-1.3); Blood Urea Nitrogen 25 mg/dL (9-20); CRP 6.3 mg/dL (<1.0); Calcium 8.7 mg/dL (8.4-10.2); Carbon Dioxide 24 mmol/L (22-30); Chloride 104 mmol/L (98-107); Estimated CRCL calculation 66 ml/min; Estimated Glomerular Filt Rate > 60; Glucose 102 mg/dL (65-110); Lactate Dehydrogenase 593 U/L (313-618); Potassium 4.1 mmol/L (3.4-5.0); Sodium 135 mmol/L (137-145)
[2021-04-10] MEDS: SALINE 0.65% NAS SOLN 44 ML BTL 1 SPRAY NASAL (09:03)
[2021-04-10] MEDS: DEXAMETHASONE 4 MG TABLET PO (09:05)
[2021-04-10] MEDS: guaiFENesin 12 HR 600 MG TABCR PO (09:06)
[2021-04-10] MEDS: ATORVASTATIN 10 MG TABLET PO (09:06)
[2021-04-10] MEDS: DEXAMETHASONE 2 MG TABLET PO (09:06)
[2021-04-10] MEDS: ENOXAPARIN 40 MG/0.4 ML SYRINGE SUB-Q (09:06)
[2021-04-10] MEDS: LOSARTAN POTASSIUM 50 MG TABLET PO (09:06)
[2021-04-10] MEDS: PANTOPRAZOLE 40 MG TABLET PO (09:06)
[2021-04-10] MEDS: REMDESIVIR 100 MG/NS 250 ML 100 MG/250 ML BAG 250 MG IVPB (10:26)
[2021-04-10] MEDS: BARICITINIB 2 MG TABLET 4 MG PO (10:27)
--- NOTE | 2021-04-10 12:23 | PM.IMPN ---
Progress Note: A&P Assessment and Plan (1) Acute respiratory failure with hypoxia: Code(s): J96.01 - Acute respiratory failure with hypoxia Status: Acute Assessment and Plan: Secondary to COVID pneumonia. No pulmonary embolism noted on chest CTA and though sensitivity was moderately decreased due to motion in the segmental arteries, PE is felt to be unlikely. Initially required 3 L O2 has now been increased to 15 L per high-flow nasal cannula Continuous pulse oximetry monitoring Wean oxygen as tolerated. Goal sats 92% or above (2) Pneumonia due to 2019 novel coronavirus: Code(s): U07.1 - COVID-19; J12.82 - Pneumonia due to coronavirus disease 2019 Status: Acute Assessment and Plan: Positive outpatient test 03/30/21 with symptom onset 10 days prior to presentation. CXR shows diffuse lung disease consistent with COVID 19 pneumonia Continue dexamethasone and remdesivir #4. Monitor LFTs while on remdesivir. ALT is normal Continue baricitinib #2 given increased oxygen demand Continue treatment with ceftriaxone and azithromycin for concomitant bacterial pneumonia given symptom onset and leukocytosis Sputum culture not performed due to oropharyngeal contamination Repeat CXR on 04/09/2021 showed stable diffuse lung Trend inflammatory markers, improved today Supportive care to include bronchodilators, expectorants, antipyretics, incentive spirometry Continue isolation precautions Patient has not been vaccinated for COVID-19 (3) Hypertension: Code(s): I10 - Essential (primary) hypertension Status: Acute Assessment and Plan: Blood pressures were reviewed and they are stable. Last BP 122/73 Continue losartan Monitor blood pressures daily. (4) Hyperlipidemia: Code(s): E78.5 - Hyperlipidemia, unspecified Status: Acute Assessment and Plan: LFTs within normal limits. Continue statin Subjective Date/time seen: 04/10/21 12:23 Interval history: Date of service: 04/10/2021 Vamsi Crowe is a 65-year-old male with a history of hypertension, hyperlipidemia, Lyme disease, and GERD who is seen in follow-up for COVID-19 pneumonia. He is feeling pretty well today. He states this morning he felt a bit more short of breath and he notes that he has been waking up the past couple mornings feeling worse and seems to get better throughout the day. He wonders if maybe at nighttime his oxygen is coming off or not flowing as well. He has been sleeping in a reclined position and not all the way flat. He is not sleeping all the way through the night and wakes up for vitals checks another disruptions. He also states the Mucinex makes him more awake and it has been like this every time he has taken Mucinex. He has occasional cough productive of clear-white sputum. He denies chest pain. He denies nausea, vomiting, fever, or chills. His appetite is okay. He feels worn down when he gets up and walks around and has been trying to rest in bed for most of the day. He feels weak. He has not had a bowel movement since his admission but thinks he needs to go today. He has no trouble urinating. He has no additional concerns at this time. Review of Systems Review of Systems: All systems reviewed & are unremarkable except as noted in HPI and below Exam Narrative: Mr. Crowe is a well-nourished, well-appearing 65-year-old male who is lying supine in bed. He appears comfortable and is in NARD. Neuro: awake, alert and oriented x4, speech clear, no focal neuro deficits noted HEENMT: normocephalic, atraumatic, EOMI, sclerae anicteric Neck: supple, no lymphadenopathy Respiratory: Diminished breath sounds bilaterally. Cough triggered by taking deep breaths. Nonlabored breathing, able to speak in complete sentences. No accessory muscle use or retractions Cardio: regular rate, regular rhythm with S1-S2 Abdomen: nondistended, normoactive bowel sounds, soft, nonten
[2021-04-10] MEDS: ACETAMINOPHEN 325 MG TABLET 650 MG PO (23:50)
[2021-04-11] VITALS (9 sets, daily range): BP systolic 96–127; BP diastolic 54–81; PULSE 52–72; RESP 16–18; TEMP 36.3–37.8; O2SAT 85–95
[2021-04-11 07:42] LABS: Basophils Percent Auto 0.2 % (0.2-1.2); Eosinophils Absolute Auto 0.1 K/mm3 (0-0.3); Eosinophils Percent Auto 0.4 % (0-4.4); Hematocrit 42.2 % (42.0-52.0); Hemoglobin 14.8 g/dL (14.0-18.0); Immature Granulocyte Absolute 0.19 K/mm3 (0.00-0.031); Immature Granulocyte Percent A 1.1 % (0-0.5); Lymphocytes Absolute Auto 1.21 K/mm3 (0.9-3.2); Lymphocytes Percent Auto 7.1 % (18.3-44.2); Mean Corpuscular HGB Conc 35.1 g/dl (32-36); Mean Corpuscular Hemoglobin 32.7 pg (26-34); Mean Corpuscular Volume 93.4 fl (80-100); Mean Platelet Volume 10.9 fl (7.4-10.4); Monocytes Absolute Auto 0.6 K/mm3 (0.1-0.6); Monocytes Percent Auto 3.6 % (2.6-8.5); Neutrophils Absolute Auto 14.8 K/mm3 (1.3-6.7); Neutrophils Percent Auto 87.6 % (45.5-73.1); Platelet Count Result 251 k/mm3 (150-375); Red Blood Count 4.52 M/mm3 (4.6-6.20); Red Cell Distribution Width 12.6 % (11.5-14.5); White Blood Count 16.9 K/mm3 (4.5-10.0)
[2021-04-11 07:57] LABS: Alanine Aminotransferase 35 U/L (4-50); Albumin Level 3.5 g/dL (3.5-5.1); Alkaline Phosphatase 55 U/L (38-126); Anion Gap 11 mmol/L (8-16); Aspartate Amino Transferase 28 U/L (17-59); Bilirubin,Total 0.8 mg/dL (0.2-1.3); Blood Urea Nitrogen 30 mg/dL (9-20); Calcium 8.9 mg/dL (8.4-10.2); Carbon Dioxide 27 mmol/L (22-30); Chloride 98 mmol/L (98-107); Estimated CRCL calculation 54 ml/min; Estimated Glomerular Filt Rate > 60; Glucose 79 mg/dL (65-110); Potassium 4.2 mmol/L (3.4-5.0); Sodium 136 mmol/L (137-145)
[2021-04-11 08:05] LABS: INR 1.2; Prothrombin Time 14.7 Seconds (11.1-14.7)
[2021-04-11] MEDS: ACETAMINOPHEN 325 MG TABLET 650 MG PO (08:16)
[2021-04-11] MEDS: PANTOPRAZOLE 40 MG TABLET PO (08:17)
[2021-04-11] MEDS: guaiFENesin 12 HR 600 MG TABCR PO (08:17)
[2021-04-11] MEDS: DEXAMETHASONE 4 MG TABLET PO (08:17)
[2021-04-11] MEDS: LOSARTAN POTASSIUM 50 MG TABLET PO (08:17)
[2021-04-11] MEDS: ENOXAPARIN 40 MG/0.4 ML SYRINGE SUB-Q (08:17)
[2021-04-11] MEDS: ATORVASTATIN 10 MG TABLET PO (08:17)
[2021-04-11] MEDS: DEXAMETHASONE 2 MG TABLET PO (08:17)
--- NOTE | 2021-04-11 09:15 | PM.IMPN ---
Progress Note: A&P Assessment and Plan (1) Acute respiratory failure with hypoxia: Code(s): J96.01 - Acute respiratory failure with hypoxia Status: Acute Assessment and Plan: Secondary to COVID pneumonia. No pulmonary embolism noted on chest CTA and though sensitivity was moderately decreased due to motion in the segmental arteries, PE is felt to be unlikely. down to 8L HFNC sating about 90% Continuous pulse oximetry monitoring Wean oxygen as tolerated. Goal sats 90% or above (2) Pneumonia due to 2019 novel coronavirus: Code(s): U07.1 - COVID-19; J12.82 - Pneumonia due to coronavirus disease 2018 Status: Acute Assessment and Plan: Positive outpatient test 03/30/21 with symptom onset 10 days prior to presentation. CXR shows diffuse lung disease consistent with COVID 19 pneumonia Continue dexamethasone and remdesivir #5. Monitor LFTs while on remdesivir. ALT is normal at 35 Continue baricitinib #3 given increased oxygen demand Continue treatment with ceftriaxone and azithromycin for concomitant bacterial pneumonia given symptom onset and leukocytosis Sputum culture not performed due to oropharyngeal contamination Repeat CXR on 04/09/2021 showed stable diffuse lung Trend inflammatory markers,Ferritin 689, CRP 6.3, LDH 593 Supportive care to include bronchodilators, expectorants, antipyretics, incentive spirometry Continue isolation precautions Patient has not been vaccinated for COVID-19 (3) Hypertension: Code(s): I10 - Essential (primary) hypertension Status: Acute Assessment and Plan: Blood pressures were reviewed and they are stable. Last BP 106/67 Continue losartan Monitor blood pressures daily. (4) Hyperlipidemia: Code(s): E78.5 - Hyperlipidemia, unspecified Status: Acute Assessment and Plan: LFTs within normal limits. Continue statin Time Spent With Patient Time with patient: Greater than 35 minutes Subjective Date/time seen: 04/11/21 0915 Interval history: Date/Time: 04/07/21 21:30 Narrative: This is a very pleasant 65-year-old male with hypertension, hyperlipidemia, Lyme disease, and GERD who presented to the emergency department earlier today via private vehicle from home for evaluation of shortness of breath. He has not been feeling well for nearly 10 days with multiple symptoms to include generalized malaise, sore throat, congestion, decreased appetite, diarrhea, body aches, fever, and cough occasionally productive of clear sputum. He tested positive for COVID-19 at a local urgent care last Friday and he was prescribed doxycycline and prednisone at that time. He felt a bit better earlier on this week however over the last 2 days he has felt much worse with increasing shortness of breath, pleuritic chest pain, and a pretty continuous cough. On arrival to the emergency department today his SpO2 was 89% on room air and he is now on 2 L nasal cannula with an SpO2 in the low 90s. CTA of the chest showed diffuse lung disease consistent with COVID pneumonia and he is being admitted in this setting. He has not yet received a COVID vaccination. Date/time seen: 04/08/21 12:53 Vamsi Crowe is a 65-year-old male with a history of hypertension, hyperlipidemia, Lyme disease, and GERD who is seen in follow-up for COVID-19 pneumonia. He is starting to feel a bit better today. His shortness of breath has improved, though he does endorse dyspnea on exertion. Also endorses conversational dyspnea. He has a productive cough with mostly white sputum, though states sometimes it is yellow-greenish. This morning, he was having chills. He was also noted to have a low-grade fever. He denies nausea or vomiting. No abdominal pain. No diarrhea. Denies chest pain. No palpitations. He does have some neck discomfort from lying in bed. He had a hard time sleeping last night and he relates this to being on steroids. His appetite has been good. He
[2021-04-11] MEDS: REMDESIVIR 100 MG/NS 250 ML 100 MG/250 ML BAG 250 MG IVPB (11:26)
[2021-04-11] MEDS: BARICITINIB 2 MG TABLET 4 MG PO (11:26)
[2021-04-12] VITALS (7 sets, daily range): BP systolic 92–116; BP diastolic 54–74; PULSE 50–72; RESP 14–16; TEMP 35.9–36.9; O2SAT 92–96
[2021-04-12 07:25] LABS: Basophils Percent Auto 0.3 % (0.2-1.2); Eosinophils Absolute Auto 0.1 K/mm3 (0-0.3); Eosinophils Percent Auto 0.7 % (0-4.4); Hematocrit 41.4 % (42.0-52.0); Immature Granulocyte Absolute 0.15 K/mm3 (0.00-0.031); Lymphocytes Absolute Auto 1.13 K/mm3 (0.9-3.2); Lymphocytes Percent Auto 7.5 % (18.3-44.2); Mean Corpuscular HGB Conc 33.8 g/dl (32-36); Mean Corpuscular Hemoglobin 31.3 pg (26-34); Mean Corpuscular Volume 92.6 fl (80-100); Mean Platelet Volume 10.6 fl (7.4-10.4); Monocytes Absolute Auto 0.6 K/mm3 (0.1-0.6); Monocytes Percent Auto 3.9 % (2.6-8.5); Neutrophils Percent Auto 86.6 % (45.5-73.1); Platelet Count Result 243 k/mm3 (150-375); Red Blood Count 4.47 M/mm3 (4.6-6.20); Red Cell Distribution Width 12.6 % (11.5-14.5); White Blood Count 15.1 K/mm3 (4.5-10.0)
[2021-04-12 07:37] LABS: Alanine Aminotransferase 30 U/L (4-50); Albumin Level 3.2 g/dL (3.5-5.1); Alkaline Phosphatase 52 U/L (38-126); Anion Gap 7 mmol/L (8-16); Aspartate Amino Transferase 25 U/L (17-59); Bilirubin,Total 0.7 mg/dL (0.2-1.3); Blood Urea Nitrogen 30 mg/dL (9-20); Calcium 8.9 mg/dL (8.4-10.2); Carbon Dioxide 24 mmol/L (22-30); Chloride 102 mmol/L (98-107); Estimated CRCL calculation 59 ml/min; Estimated Glomerular Filt Rate > 60; Glucose 96 mg/dL (65-110); Potassium 4.2 mmol/L (3.4-5.0); Sodium 133 mmol/L (137-145)
[2021-04-12 08:03] LABS: Lactate Dehydrogenase 806 U/L (313-618); Magnesium 2.4 mg/dL (1.6-2.3)
[2021-04-12] MEDS: ALBUTEROL SULFATE (*SP) INHALER 2 PUFF INHALATION (08:07)
[2021-04-12 08:08] LABS: INR 1.2
[2021-04-12 08:11] LABS: CRP 10.6 mg/dL (<1.0)
[2021-04-12 08:49] LABS: D Dimer 3.86 ug/mL (<0.48)
[2021-04-12] MEDS: ENOXAPARIN 40 MG/0.4 ML SYRINGE SUB-Q (09:18)
[2021-04-12] MEDS: guaiFENesin 12 HR 600 MG TABCR PO (09:18)
[2021-04-12] MEDS: DEXAMETHASONE 4 MG TABLET PO ×2 (09:18→16:46)
[2021-04-12] MEDS: PANTOPRAZOLE 40 MG TABLET PO (09:18)
[2021-04-12] MEDS: ATORVASTATIN 10 MG TABLET PO (09:18)
[2021-04-12] MEDS: LOSARTAN POTASSIUM 50 MG TABLET PO (09:19)
[2021-04-12] MEDS: REMDESIVIR 100 MG/NS 250 ML 100 MG/250 ML BAG 250 MG IVPB (09:19)
[2021-04-12] MEDS: DEXAMETHASONE 2 MG TABLET PO ×2 (09:19→16:46)
--- NOTE | 2021-04-12 10:30 | PM.IMPN ---
Progress Note: A&P Assessment and Plan (1) Acute respiratory failure with hypoxia: Code(s): J96.01 - Acute respiratory failure with hypoxia Status: Acute Assessment and Plan: Secondary to COVID pneumonia. No pulmonary embolism noted on chest CTA and though sensitivity was moderately decreased due to motion in the segmental arteries, PE is felt to be unlikely. down to 4-5L HFNC sating about 90% Continuous pulse oximetry monitoring, DC'd at this time Wean oxygen as tolerated. Goal sats 90% or above (2) Pneumonia due to 2019 novel coronavirus: Code(s): U07.1 - COVID-19; J12.82 - Pneumonia due to coronavirus disease 2019 Status: Acute Assessment and Plan: Positive outpatient test 03/30/21 with symptom onset 10 days prior to presentation. CXR shows diffuse lung disease consistent with COVID 19 pneumonia Continue dexamethasone and remdesivir #6. Monitor LFTs while on remdesivir. ALT is normal at 30 Continue baricitinib #4 given increased oxygen demand Continue treatment with ceftriaxone and azithromycin for concomitant bacterial pneumonia given symptom onset and leukocytosis Sputum culture not performed due to oropharyngeal contamination Repeat CXR on 04/09/2021 showed stable diffuse lung, repeat chest xray in the am Trend inflammatory markers,Ferritin 875, CRP 10.6, LDH 806, Dimer 3.86 Supportive care to include bronchodilators, expectorants, antipyretics, incentive spirometry Continue isolation precautions Patient has not been vaccinated for COVID-19 (3) Hypertension: Code(s): I10 - Essential (primary) hypertension Status: Acute Assessment and Plan: Blood pressures were reviewed and they are stable. Last BP 103/54 Continue losartan Monitor blood pressures daily. (4) Hyperlipidemia: Code(s): E78.5 - Hyperlipidemia, unspecified Status: Acute Assessment and Plan: LFTs within normal limits. Continue statin Subjective Date/time seen: 04/12/21 1030 Interval history: Date/Time: 04/07/21 21:30 Narrative: This is a very pleasant 65-year-old male with hypertension, hyperlipidemia, Lyme disease, and GERD who presented to the emergency department earlier today via private vehicle from home for evaluation of shortness of breath. He has not been feeling well for nearly 10 days with multiple symptoms to include generalized malaise, sore throat, congestion, decreased appetite, diarrhea, body aches, fever, and cough occasionally productive of clear sputum. He tested positive for COVID-19 at a local urgent care last Friday and he was prescribed doxycycline and prednisone at that time. He felt a bit better earlier on this week however over the last 2 days he has felt much worse with increasing shortness of breath, pleuritic chest pain, and a pretty continuous cough. On arrival to the emergency department today his SpO2 was 89% on room air and he is now on 2 L nasal cannula with an SpO2 in the low 90s. CTA of the chest showed diffuse lung disease consistent with COVID pneumonia and he is being admitted in this setting. He has not yet received a COVID vaccination. Date/time seen: 04/08/21 12:53 Vamsi Crowe is a 65-year-old male with a history of hypertension, hyperlipidemia, Lyme disease, and GERD who is seen in follow-up for COVID-19 pneumonia. He is starting to feel a bit better today. His shortness of breath has improved, though he does endorse dyspnea on exertion. Also endorses conversational dyspnea. He has a productive cough with mostly white sputum, though states sometimes it is yellow-greenish. This morning, he was having chills. He was also noted to have a low-grade fever. He denies nausea or vomiting. No abdominal pain. No diarrhea. Denies chest pain. No palpitations. He does have some neck discomfort from lying in bed. He had a hard time sleeping last night and he relates this to being on steroids. His appetite has been good. He has
[2021-04-12] MEDS: BARICITINIB 2 MG TABLET 4 MG PO (11:48)
[2021-04-13] VITALS (7 sets, daily range): BP systolic 94–145; BP diastolic 50–92; PULSE 45–119; RESP 16–20; TEMP 35.8–36.9; O2SAT 92–95
[2021-04-13 07:23] LABS: Basophils Percent Auto 0.2 % (0.2-1.2); Hematocrit 40.1 % (42.0-52.0); Hemoglobin 13.9 g/dL (14.0-18.0); Immature Granulocyte Absolute 0.13 K/mm3 (0.00-0.031); Immature Granulocyte Percent A 1.2 % (0-0.5); Lymphocytes Absolute Auto 1.11 K/mm3 (0.9-3.2); Lymphocytes Percent Auto 10.5 % (18.3-44.2); Mean Corpuscular HGB Conc 34.7 g/dl (32-36); Mean Corpuscular Hemoglobin 32.6 pg (26-34); Mean Corpuscular Volume 94.1 fl (80-100); Mean Platelet Volume 10.9 fl (7.4-10.4); Monocytes Absolute Auto 0.3 K/mm3 (0.1-0.6); Neutrophils Percent Auto 85.1 % (45.5-73.1); Platelet Count Result 282 k/mm3 (150-375); Red Blood Count 4.26 M/mm3 (4.6-6.20); Red Cell Distribution Width 12.7 % (11.5-14.5); White Blood Count 10.6 K/mm3 (4.5-10.0)
[2021-04-13 07:31] LABS: Alanine Aminotransferase 31 U/L (4-50); Aspartate Amino Transferase 28 U/L (17-59); Estimated CRCL calculation 66 ml/min; Estimated Glomerular Filt Rate > 60
[2021-04-13 07:54] LABS: Alanine Aminotransferase 32 U/L (4-50); Albumin Level 3.2 g/dL (3.5-5.1); Alkaline Phosphatase 47 U/L (38-126); Anion Gap 8 mmol/L (8-16); Aspartate Amino Transferase 26 U/L (17-59); Bilirubin,Total 0.5 mg/dL (0.2-1.3); Blood Urea Nitrogen 27 mg/dL (9-20); Calcium 8.8 mg/dL (8.4-10.2); Carbon Dioxide 24 mmol/L (22-30); Chloride 104 mmol/L (98-107); Estimated CRCL calculation 66 ml/min; Estimated Glomerular Filt Rate > 60; Glucose 121 mg/dL (65-110); Magnesium 2.6 mg/dL (1.6-2.3); Potassium 4.5 mmol/L (3.4-5.0); Sodium 136 mmol/L (137-145)
[2021-04-13 08:01] LABS: INR 1.2; Prothrombin Time 14.8 Seconds (11.1-14.7)
--- NOTE | 2021-04-13 08:45 | PM.IMPN ---
Progress Note: A&P Assessment and Plan (1) Acute respiratory failure with hypoxia: Code(s): J96.01 - Acute respiratory failure with hypoxia Status: Acute Assessment and Plan: Secondary to COVID pneumonia No pulmonary embolism noted on chest CTA sensitivity was moderately decreased due to motion in the segmental arteries, PE is felt to be unlikely. down to 4-5L HFNC sating about 90% Wean oxygen as tolerated Goal sats 90% or above (2) Pneumonia due to 2019 novel coronavirus: Code(s): U07.1 - COVID-19; J12.82 - Pneumonia due to coronavirus disease 2019 Status: Acute Assessment and Plan: Positive outpatient test 03/30/21 with symptom onset 10 days prior to presentation CXR shows Unchanged diffuse lung disease consistent with COVID 19 PNA Continue dexamethasone and remdesivir #7 Monitor LFTs while on remdesivir. ALT is normal at 30 Continue baricitinib #5 given increased oxygen demand Continue treatment with ceftriaxone and azithromycin for concomitant bacterial pneumonia given symptom onset and leukocytosis, DC recieved Sputum culture not performed due to oropharyngeal contamination Trend inflammatory markers,Ferritin 875, CRP 10.6, LDH 806, Dimer 3.86 Supportive care to include bronchodilators, expectorants, antipyretics, incentive spirometry Continue isolation precautions Patient has not been vaccinated for COVID-19 (3) Hypertension: Code(s): I10 - Essential (primary) hypertension Status: Acute Assessment and Plan: Blood pressures were reviewed and they are stable. Last BP 94/59 Blood pressure are soft Continue losartan, consider holding at this time Monitor blood pressures daily. (4) Hyperlipidemia: Code(s): E78.5 - Hyperlipidemia, unspecified Status: Acute Assessment and Plan: LFTs within normal limits. Continue statin Time Spent With Patient Time with patient: Greater than 35 minutes Subjective Date/time seen: 04/13/21 08:45 Interval history: Date/Time: 04/07/21 21:30 Narrative: This is a very pleasant 65-year-old male with hypertension, hyperlipidemia, Lyme disease, and GERD who presented to the emergency department earlier today via private vehicle from home for evaluation of shortness of breath. He has not been feeling well for nearly 10 days with multiple symptoms to include generalized malaise, sore throat, congestion, decreased appetite, diarrhea, body aches, fever, and cough occasionally productive of clear sputum. He tested positive for COVID-19 at a local urgent care last Friday and he was prescribed doxycycline and prednisone at that time. He felt a bit better earlier on this week however over the last 2 days he has felt much worse with increasing shortness of breath, pleuritic chest pain, and a pretty continuous cough. On arrival to the emergency department today his SpO2 was 89% on room air and he is now on 2 L nasal cannula with an SpO2 in the low 90s. CTA of the chest showed diffuse lung disease consistent with COVID pneumonia and he is being admitted in this setting. He has not yet received a COVID vaccination. Date/time seen: 04/08/21 12:53 Vamsi Crowe is a 65-year-old male with a history of hypertension, hyperlipidemia, Lyme disease, and GERD who is seen in follow-up for COVID-19 pneumonia. He is starting to feel a bit better today. His shortness of breath has improved, though he does endorse dyspnea on exertion. Also endorses conversational dyspnea. He has a productive cough with mostly white sputum, though states sometimes it is yellow-greenish. This morning, he was having chills. He was also noted to have a low-grade fever. He denies nausea or vomiting. No abdominal pain. No diarrhea. Denies chest pain. No palpitations. He does have some neck discomfort from lying in bed. He had a hard time sleeping last night and he relates this to being on steroids. His appetite has been good. He has
--- NOTE | 2021-04-13 08:45 | P.PNIM_ITS ---
Progress Note: A&P Assessment and Plan (1) Acute respiratory failure with hypoxia: Code(s): J96.01 - Acute respiratory failure with hypoxia Status: Acute Assessment and Plan: * Secondary to COVID pneumonia * No pulmonary embolism noted on chest CTA * sensitivity was moderately decreased due to motion in the segmental arteries, PE is felt to be unlikely. * down to 4-5L HFNC sating about 90% * Wean oxygen as tolerated * Goal sats 90% or above (2) Pneumonia due to 2019 novel coronavirus: Code(s): U07.1 - COVID-19; J12.82 - Pneumonia due to coronavirus disease 2018 Status: Acute Assessment and Plan: * Positive outpatient test 03/30/21 with symptom onset 10 days prior to presentation * CXR shows Unchanged diffuse lung disease consistent with COVID 19 PNA * Continue dexamethasone and remdesivir #7 * Monitor LFTs while on remdesivir. ALT is normal at 30 * Continue baricitinib #5 given increased oxygen demand * Continue treatment with ceftriaxone and azithromycin for concomitant bacterial pneumonia given symptom onset and leukocytosis, DC recieved * Sputum culture not performed due to oropharyngeal contamination * Trend inflammatory markers,Ferritin 875, CRP 10.6, LDH 806, Dimer 3.86 * Supportive care to include bronchodilators, expectorants, antipyretics, incentive spirometry * Continue isolation precautions * Patient has not been vaccinated for COVID-19 (3) Hypertension: Code(s): I10 - Essential (primary) hypertension Status: Acute Assessment and Plan: * Blood pressures were reviewed and they are stable. Last BP 94/59 * Blood pressure are soft * Continue losartan, consider holding at this time * Monitor blood pressures daily. (4) Hyperlipidemia: Code(s): E78.5 - Hyperlipidemia, unspecified Status: Acute Assessment and Plan: LFTs within normal limits. * Continue statin Time Spent With Patient Time with patient: Greater than 35 minutes Subjective Date/time seen: 04/13/21 08:45 Interval history: Date/Time: 04/07/21 21:30 Narrative: This is a very pleasant 65-year-old male with hypertension, hyperlipidemia, Lyme disease, and GERD who presented to the emergency department earlier today via private vehicle from home for evaluation of shortness of breath. He has not been feeling well for nearly 10 days with multiple symptoms to include generalized malaise, sore throat, congestion, decreased appetite, diarrhea, body aches, fever, and cough occasionally productive of clear sputum. He tested positive for COVID-19 at a local urgent care last Friday and he was prescribed doxycycline and prednisone at that time. He felt a bit better earlier on this week however over the last 2 days he has felt much worse with increasing shortness of breath, pleuritic chest pain, and a pretty continuous cough. On arrival to the emergency department today his SpO2 was 89% on room air and he is now on 2 L nasal cannula with an SpO2 in the low 90s. CTA of the chest showed diffuse lung disease consistent with COVID pneumonia and he is being admitted in this setting. He has not yet received a COVID vaccination. Date/time seen: 04/08/21 12:53 Vamsi Crowe is a 65-year-old male with a history of hypertension, hyperlipidemia, Lyme disease, and GERD who is seen in follow-up for COVID-19 pneumonia. He is starting to feel a bit better today. His shortness of breath has improved, though he does endorse dyspnea on exertion. Also endorses conversational dyspnea. He has a productive cough with mostly white sputum, though states sometimes it is yellow-greenish
[2021-04-13] MEDS: ENOXAPARIN 40 MG/0.4 ML SYRINGE SUB-Q (08:59)
[2021-04-13] MEDS: PANTOPRAZOLE 40 MG TABLET PO (08:59)
[2021-04-13] MEDS: DEXAMETHASONE 2 MG TABLET 6 MG PO ×2 (08:59→17:02)
[2021-04-13] MEDS: ATORVASTATIN 10 MG TABLET PO (09:00)
[2021-04-13] MEDS: guaiFENesin 12 HR 600 MG TABCR PO (09:00)
[2021-04-13] MEDS: LOSARTAN POTASSIUM 50 MG TABLET PO (09:00)
[2021-04-13] MEDS: REMDESIVIR 100 MG/NS 250 ML 100 MG/250 ML BAG 250 MG IVPB (10:51)
[2021-04-13] MEDS: BARICITINIB 2 MG TABLET 4 MG PO (10:51)
--- NOTE | 2021-04-13 10:58 | PCNWS ---
Weekly nutritional screen. Pt screened in for 7 day length of stay. Patient is tolerating current diet with adequate intake. No weight loss reported. No nutritional needs at this time.
[2021-04-14] VITALS (8 sets, daily range): BP systolic 101–111; BP diastolic 57–67; PULSE 50–60; RESP 12–24; TEMP 36.1–36.8; O2SAT 91–96
[2021-04-14 06:21] LABS: Basophils Percent Auto 0.1 % (0.2-1.2); Hematocrit 41.2 % (42.0-52.0); Hemoglobin 14.1 g/dL (14.0-18.0); Immature Granulocyte Absolute 0.13 K/mm3 (0.00-0.031); Immature Granulocyte Percent A 1.2 % (0-0.5); Lymphocytes Percent Auto 9.3 % (18.3-44.2); Mean Corpuscular HGB Conc 34.2 g/dl (32-36); Mean Corpuscular Hemoglobin 31.7 pg (26-34); Mean Corpuscular Volume 92.6 fl (80-100); Mean Platelet Volume 10.5 fl (7.4-10.4); Monocytes Absolute Auto 0.5 K/mm3 (0.1-0.6); Monocytes Percent Auto 4.5 % (2.6-8.5); Neutrophils Absolute Auto 9.2 K/mm3 (1.3-6.7); Neutrophils Percent Auto 84.9 % (45.5-73.1); Platelet Count Result 289 k/mm3 (150-375); Red Blood Count 4.45 M/mm3 (4.6-6.20); Red Cell Distribution Width 12.4 % (11.5-14.5); White Blood Count 10.8 K/mm3 (4.5-10.0)
[2021-04-14 06:41] LABS: Alanine Aminotransferase 30 U/L (4-50); Albumin Level 3.1 g/dL (3.5-5.1); Alkaline Phosphatase 51 U/L (38-126); Anion Gap 9 mmol/L (8-16); Aspartate Amino Transferase 25 U/L (17-59); Bilirubin,Total 0.5 mg/dL (0.2-1.3); Blood Urea Nitrogen 25 mg/dL (9-20); Calcium 8.9 mg/dL (8.4-10.2); Carbon Dioxide 21 mmol/L (22-30); Chloride 104 mmol/L (98-107); Estimated CRCL calculation 73 ml/min; Estimated Glomerular Filt Rate > 60; Glucose 120 mg/dL (65-110); Magnesium 2.6 mg/dL (1.6-2.3); Potassium 4.5 mmol/L (3.4-5.0); Sodium 134 mmol/L (137-145)
[2021-04-14 06:46] LABS: INR 1.2
[2021-04-14 06:48] LABS: D Dimer 1.82 ug/mL (<0.48)
[2021-04-14 07:56] LABS: CRP 2.6 mg/dL (<1.0); Lactate Dehydrogenase 495 U/L (313-618)
[2021-04-14] MEDS: PANTOPRAZOLE 40 MG TABLET PO (09:08)
[2021-04-14] MEDS: ATORVASTATIN 10 MG TABLET PO (09:08)
[2021-04-14] MEDS: LOSARTAN POTASSIUM 50 MG TABLET PO (09:08)
[2021-04-14] MEDS: ENOXAPARIN 40 MG/0.4 ML SYRINGE SUB-Q (09:09)
[2021-04-14] MEDS: guaiFENesin 12 HR 600 MG TABCR PO (09:09)
[2021-04-14] MEDS: DEXAMETHASONE 2 MG TABLET 6 MG PO ×2 (09:09→17:11)
--- NOTE | 2021-04-14 09:30 | PM.IMPN ---
Progress Note: A&P Assessment and Plan (1) Acute respiratory failure with hypoxia: Code(s): J96.01 - Acute respiratory failure with hypoxia Status: Acute Assessment and Plan: Secondary to COVID pneumonia No pulmonary embolism noted on chest CTA sensitivity was moderately decreased due to motion in the segmental arteries, PE is felt to be unlikely. down to 4-5L HFNC sating about 90% Wean oxygen as tolerated Goal sats 90% or above (2) Pneumonia due to 2019 novel coronavirus: Code(s): U07.1 - COVID-19; J12.82 - Pneumonia due to coronavirus disease 2019 Status: Acute Assessment and Plan: Positive outpatient test 03/30/21 with symptom onset 10 days prior to presentation CXR shows Unchanged diffuse lung disease consistent with COVID 19 PNA Continue dexamethasone and remdesivir #8 Monitor LFTs while on remdesivir. ALT is normal at 30 Continue baricitinib #6 given increased oxygen demand Continue treatment with ceftriaxone and azithromycin for concomitant bacterial pneumonia given symptom onset and leukocytosis, DC received 5 days Sputum culture not performed due to oropharyngeal contamination Trend inflammatory markers,Ferritin 644, CRP 2.6, LDH 495, Dimer 1.82 Supportive care to include bronchodilators, expectorants, antipyretics, incentive spirometry Continue isolation precautions Patient has not been vaccinated for COVID-19 (3) Hypertension: Code(s): I10 - Essential (primary) hypertension Status: Acute Assessment and Plan: Blood pressures were reviewed and they are stable. Last BP 106/62 Blood pressure are soft Continue losartan, consider holding at this time Monitor blood pressures daily. (4) Hyperlipidemia: Code(s): E78.5 - Hyperlipidemia, unspecified Status: Acute Assessment and Plan: LFTs within normal limits. Continue statin Time Spent With Patient Time with patient: Greater than 35 minutes Subjective Date/time seen: 04/14/21 10:15 Interval history: Date/Time: 04/07/21 21:30 Narrative: This is a very pleasant 65-year-old male with hypertension, hyperlipidemia, Lyme disease, and GERD who presented to the emergency department earlier today via private vehicle from home for evaluation of shortness of breath. He has not been feeling well for nearly 10 days with multiple symptoms to include generalized malaise, sore throat, congestion, decreased appetite, diarrhea, body aches, fever, and cough occasionally productive of clear sputum. He tested positive for COVID-19 at a local urgent care last Friday and he was prescribed doxycycline and prednisone at that time. He felt a bit better earlier on this week however over the last 2 days he has felt much worse with increasing shortness of breath, pleuritic chest pain, and a pretty continuous cough. On arrival to the emergency department today his SpO2 was 89% on room air and he is now on 2 L nasal cannula with an SpO2 in the low 90s. CTA of the chest showed diffuse lung disease consistent with COVID pneumonia and he is being admitted in this setting. He has not yet received a COVID vaccination. Date/time seen: 04/08/21 12:53 Vamsi Crowe is a 65-year-old male with a history of hypertension, hyperlipidemia, Lyme disease, and GERD who is seen in follow-up for COVID-19 pneumonia. He is starting to feel a bit better today. His shortness of breath has improved, though he does endorse dyspnea on exertion. Also endorses conversational dyspnea. He has a productive cough with mostly white sputum, though states sometimes it is yellow-greenish. This morning, he was having chills. He was also noted to have a low-grade fever. He denies nausea or vomiting. No abdominal pain. No diarrhea. Denies chest pain. No palpitations. He does have some neck discomfort from lying in bed. He had a hard time sleeping last night and he relates this to being on steroids. His appetite has been good.
--- NOTE | 2021-04-14 09:30 | P.PNIM_ITS ---
Progress Note: A&P Assessment and Plan (1) Acute respiratory failure with hypoxia: Code(s): J96.01 - Acute respiratory failure with hypoxia Status: Acute Assessment and Plan: * Secondary to COVID pneumonia * No pulmonary embolism noted on chest CTA * sensitivity was moderately decreased due to motion in the segmental arteries, PE is felt to be unlikely. * down to 4-5L HFNC sating about 90% * Wean oxygen as tolerated * Goal sats 90% or above (2) Pneumonia due to 2019 novel coronavirus: Code(s): U07.1 - COVID-19; J12.82 - Pneumonia due to coronavirus disease 2018 Status: Acute Assessment and Plan: * Positive outpatient test 03/30/21 with symptom onset 10 days prior to presentation * CXR shows Unchanged diffuse lung disease consistent with COVID 19 PNA * Continue dexamethasone and remdesivir #8 * Monitor LFTs while on remdesivir. ALT is normal at 30 * Continue baricitinib #6 given increased oxygen demand * Continue treatment with ceftriaxone and azithromycin for concomitant bacterial pneumonia given symptom onset and leukocytosis, DC received 5 days * Sputum culture not performed due to oropharyngeal contamination * Trend inflammatory markers,Ferritin 644, CRP 2.6, LDH 495, Dimer 1.82 * Supportive care to include bronchodilators, expectorants, antipyretics, incentive spirometry * Continue isolation precautions * Patient has not been vaccinated for COVID-19 (3) Hypertension: Code(s): I10 - Essential (primary) hypertension Status: Acute Assessment and Plan: * Blood pressures were reviewed and they are stable. Last BP 106/62 * Blood pressure are soft * Continue losartan, consider holding at this time * Monitor blood pressures daily. (4) Hyperlipidemia: Code(s): E78.5 - Hyperlipidemia, unspecified Status: Acute Assessment and Plan: LFTs within normal limits. * Continue statin Time Spent With Patient Time with patient: Greater than 35 minutes Subjective Date/time seen: 04/14/21 10:15 Interval history: Date/Time: 04/07/21 21:30 Narrative: This is a very pleasant 65-year-old male with hypertension, hyperlipidemia, Lyme disease, and GERD who presented to the emergency department earlier today via private vehicle from home for evaluation of shortness of breath. He has not been feeling well for nearly 10 days with multiple symptoms to include generalized malaise, sore throat, congestion, decreased appetite, diarrhea, body aches, fever, and cough occasionally productive of clear sputum. He tested positive for COVID-19 at a local urgent care last Friday and he was prescribed doxycycline and prednisone at that time. He felt a bit better al ier on this week however over the last 2 days he has felt much worse with increasing shortness of breath, pleuritic chest pain, and a pretty continuous cough. On arrival to the emergency department today his SpO2 was 89% on room air and he is now on 2 L nasal cannula with an SpO2 in the low 90s. CTA of the chest showed diffuse lung disease consistent with COVID pneumonia and he is being admitted in this setting. He has not yet received a COVID vaccination. Date/time seen: 04/08/21 12:53 Vamsi Crowe is a 65-year-old male with a history of hypertension, hyperlip idemia, Lyme disease, and GERD who is seen in follow-up for COVID-19 pneumonia. He is starting to feel a bit better today. His shortness of breath has improved, though he does endorse dyspnea on exertion. Also endorses conversational dyspnea. He has a productive cough with mostly white sputum, though states sometimes it is yellow-gre
[2021-04-14] MEDS: BARICITINIB 2 MG TABLET 4 MG PO (10:11)
[2021-04-14] MEDS: REMDESIVIR 100 MG/NS 250 ML 100 MG/250 ML BAG 250 MG IVPB (10:11)
[2021-04-15] VITALS (7 sets, daily range): BP systolic 101–109; BP diastolic 56–66; PULSE 45–59; RESP 14; TEMP 36.1–36.7; O2SAT 92–98
[2021-04-15 06:26] LABS: Basophils Percent Auto 0.1 % (0.2-1.2); Hematocrit 41.5 % (42.0-52.0); Hemoglobin 14.2 g/dL (14.0-18.0); Immature Granulocyte Absolute 0.16 K/mm3 (0.00-0.031); Immature Granulocyte Percent A 1.8 % (0-0.5); Lymphocytes Percent Auto 8.8 % (18.3-44.2); Mean Corpuscular HGB Conc 34.2 g/dl (32-36); Mean Corpuscular Hemoglobin 32.1 pg (26-34); Mean Corpuscular Volume 93.9 fl (80-100); Mean Platelet Volume 10.9 fl (7.4-10.4); Monocytes Absolute Auto 0.5 K/mm3 (0.1-0.6); Monocytes Percent Auto 5.2 % (2.6-8.5); Neutrophils Absolute Auto 7.6 K/mm3 (1.3-6.7); Neutrophils Percent Auto 84.1 % (45.5-73.1); Platelet Count Result 291 k/mm3 (150-375); Red Blood Count 4.42 M/mm3 (4.6-6.20); Red Cell Distribution Width 12.5 % (11.5-14.5); White Blood Count 9.1 K/mm3 (4.5-10.0)
[2021-04-15 06:39] LABS: Alanine Aminotransferase 35 U/L (4-50); Aspartate Amino Transferase 22 U/L (17-59); Estimated CRCL calculation 73 ml/min; Estimated Glomerular Filt Rate > 60
[2021-04-15 06:48] LABS: INR 1.1; Prothrombin Time 14.5 Seconds (11.1-14.7)
[2021-04-15 07:38] LABS: Alanine Aminotransferase 35 U/L (4-50); Albumin Level 3.1 g/dL (3.5-5.1); Alkaline Phosphatase 44 U/L (38-126); Anion Gap 10 mmol/L (8-16); Aspartate Amino Transferase 27 U/L (17-59); Bilirubin,Total 0.6 mg/dL (0.2-1.3); Blood Urea Nitrogen 30 mg/dL (9-20); Calcium 8.7 mg/dL (8.4-10.2); Carbon Dioxide 20 mmol/L (22-30); Chloride 104 mmol/L (98-107); Estimated CRCL calculation 73 ml/min; Estimated Glomerular Filt Rate > 60; Glucose 109 mg/dL (65-110); Potassium 4.3 mmol/L (3.4-5.0); Sodium 134 mmol/L (137-145)
[2021-04-15] MEDS: ENOXAPARIN 40 MG/0.4 ML SYRINGE SUB-Q (09:09)
[2021-04-15] MEDS: guaiFENesin 12 HR 600 MG TABCR PO (09:09)
[2021-04-15] MEDS: DEXAMETHASONE 2 MG TABLET 6 MG PO ×2 (09:10→16:26)
[2021-04-15] MEDS: LOSARTAN POTASSIUM 50 MG TABLET PO (09:10)
[2021-04-15] MEDS: ATORVASTATIN 10 MG TABLET PO (09:10)
[2021-04-15] MEDS: PANTOPRAZOLE 40 MG TABLET PO (09:10)
--- NOTE | 2021-04-15 10:00 | P.PNIM_ITS ---
Progress Note: A&P Assessment and Plan (1) Acute respiratory failure with hypoxia: Code(s): J96.01 - Acute respiratory failure with hypoxia Status: Acute Assessment and Plan: * Secondary to COVID pneumonia * No pulmonary embolism noted on chest CTA * sensitivity was moderately decreased due to motion in the segmental arteries, PE is felt to be unlikely. * down to 1L HFNC sating about 90% * Wean oxygen as tolerated * Goal sats 90% or above (2) Pneumonia due to 2019 novel coronavirus: Code(s): U07.1 - COVID-19; J12.82 - Pneumonia due to coronavirus disease 2018 Status: Acute Assessment and Plan: * Positive outpatient test 03/30/21 with symptom onset 10 days prior to presentation * CXR shows Unchanged diffuse lung disease consistent with COVID 19 PNA * Continue dexamethasone and remdesivir #9 * Monitor LFTs while on remdesivir. ALT is normal at 30 * Continue baricitinib #7 given increased oxygen demand * Continue treatment with ceftriaxone and azithromycin for concomitant bacterial pneumonia given symptom onset and leukocytosis, DC received 5 days * Sputum culture not performed due to oropharyngeal contamination * Trend inflammatory markers, Ferritin 644, CRP 2.6, LDH 495, Dimer 1.82 * Supportive care to include bronchodilators, expectorants, antipyretics, incentive spirometry * Continue isolation precautions * Patient has not been vaccinated for COVID-19 (3) Hypertension: Code(s): I10 - Essential (primary) hypertension Status: Acute Assessment and Plan: * Blood pressures were reviewed and they are stable. Last BP 107/62 * Blood pressure are soft * Continue losartan, consider holding at this time * Monitor blood pressures daily. (4) Hyperlipidemia: Code(s): E78.5 - Hyperlipidemia, unspecified Status: Acute Assessment and Plan: * LFTs within normal limits. * Continue statin Time Spent With Patient Time with patient: Greater than 35 minutes Subjective Date/time seen: 04/15/21 10:00 Interval history: Date/Time: 04/07/21 21:30 Narrative: This is a very pleasant 65-year-old male with hypertension, hyperlipidemia, Lyme disease, and GERD who presented to the emergency department earlier today via private vehicle from home for evaluation of shortness of breath. He has not been feeling well for nearly 10 days with multiple symptoms to include generalized malaise, sore throat, congestion, decreased appetite, diarrhea, body aches, fever, and cough occasionally productive of clear sputum. He tested positive for COVID-19 at a local urgent care last Friday and he was prescribed doxycycline and prednisone at that time. He felt a bit better e arlier on this week however over the last 2 days he has felt much worse with increasing shortness of breath, pleuritic chest pain, and a pretty continuous cough. On arrival to the emergency department today his SpO2 was 89% on room air and he is now on 2 L nasal cannula with an SpO2 in the low 90s. CTA of the chest showed diffuse lung disease consistent with COVID pneumonia and he is being admitted in this setting. He has not yet received a COVID vaccination. Date/time seen: 04/08/21 12:53 Vamsi Crowe is a 65-year-old male with a history of hypertension, hyper lipidemia, Lyme disease, and GERD who is seen in follow-up for COVID-19 pneumonia. He is starting to feel a bit better today. His shortness of breath has improved, though he does endorse dyspnea on exertion. Also endorses conversational dyspnea. He has a productive cough with mostly white sputum, though states someti
--- NOTE | 2021-04-15 10:00 | PM.IMPN ---
Progress Note: A&P Assessment and Plan (1) Acute respiratory failure with hypoxia: Code(s): J96.01 - Acute respiratory failure with hypoxia Status: Acute Assessment and Plan: Secondary to COVID pneumonia No pulmonary embolism noted on chest CTA sensitivity was moderately decreased due to motion in the segmental arteries, PE is felt to be unlikely. down to 1L HFNC sating about 90% Wean oxygen as tolerated Goal sats 90% or above (2) Pneumonia due to 2019 novel coronavirus: Code(s): U07.1 - COVID-19; J12.82 - Pneumonia due to coronavirus disease 2018 Status: Acute Assessment and Plan: Positive outpatient test 03/30/21 with symptom onset 10 days prior to presentation CXR shows Unchanged diffuse lung disease consistent with COVID 19 PNA Continue dexamethasone and remdesivir #9 Monitor LFTs while on remdesivir. ALT is normal at 30 Continue baricitinib #7 given increased oxygen demand Continue treatment with ceftriaxone and azithromycin for concomitant bacterial pneumonia given symptom onset and leukocytosis, DC received 5 days Sputum culture not performed due to oropharyngeal contamination Trend inflammatory markers, Ferritin 644, CRP 2.6, LDH 495, Dimer 1.82 Supportive care to include bronchodilators, expectorants, antipyretics, incentive spirometry Continue isolation precautions Patient has not been vaccinated for COVID-19 (3) Hypertension: Code(s): I10 - Essential (primary) hypertension Status: Acute Assessment and Plan: Blood pressures were reviewed and they are stable. Last BP 107/62 Blood pressure are soft Continue losartan, consider holding at this time Monitor blood pressures daily. (4) Hyperlipidemia: Code(s): E78.5 - Hyperlipidemia, unspecified Status: Acute Assessment and Plan: LFTs within normal limits. Continue statin Time Spent With Patient Time with patient: Greater than 35 minutes Subjective Date/time seen: 04/15/21 10:00 Interval history: Date/Time: 04/07/21 21:30 Narrative: This is a very pleasant 65-year-old male with hypertension, hyperlipidemia, Lyme disease, and GERD who presented to the emergency department earlier today via private vehicle from home for evaluation of shortness of breath. He has not been feeling well for nearly 10 days with multiple symptoms to include generalized malaise, sore throat, congestion, decreased appetite, diarrhea, body aches, fever, and cough occasionally productive of clear sputum. He tested positive for COVID-19 at a local urgent care last Friday and he was prescribed doxycycline and prednisone at that time. He felt a bit better earlier on this week however over the last 2 days he has felt much worse with increasing shortness of breath, pleuritic chest pain, and a pretty continuous cough. On arrival to the emergency department today his SpO2 was 89% on room air and he is now on 2 L nasal cannula with an SpO2 in the low 90s. CTA of the chest showed diffuse lung disease consistent with COVID pneumonia and he is being admitted in this setting. He has not yet received a COVID vaccination. Date/time seen: 04/08/21 12:53 Vamsi Crowe is a 65-year-old male with a history of hypertension, hyperlipidemia, Lyme disease, and GERD who is seen in follow-up for COVID-19 pneumonia. He is starting to feel a bit better today. His shortness of breath has improved, though he does endorse dyspnea on exertion. Also endorses conversational dyspnea. He has a productive cough with mostly white sputum, though states sometimes it is yellow-greenish. This morning, he was having chills. He was also noted to have a low-grade fever. He denies nausea or vomiting. No abdominal pain. No diarrhea. Denies chest pain. No palpitations. He does have some neck discomfort from lying in bed. He had a hard time sleeping last night and he relates this to being on steroids. His appetite has been g
[2021-04-15] MEDS: BARICITINIB 2 MG TABLET 4 MG PO (11:00)
[2021-04-15] MEDS: REMDESIVIR 100 MG/NS 250 ML 100 MG/250 ML BAG 250 MG IVPB (11:00)
[2021-04-16] VITALS (9 sets, daily range): BP systolic 98–113; BP diastolic 52–65; PULSE 46–70; RESP 16–18; TEMP 36.2–36.7; O2SAT 92–97
--- NOTE | 2021-04-16 06:45 | PM.IMPN ---
Progress Note: A&P Assessment and Plan (1) Acute respiratory failure with hypoxia: Code(s): J96.01 - Acute respiratory failure with hypoxia Status: Acute Assessment and Plan: Secondary to COVID pneumonia No pulmonary embolism noted on chest CTA sensitivity was moderately decreased due to motion in the segmental arteries, PE is felt to be unlikely. down to room air sating 90% Wean oxygen as tolerated Goal sats 90% or above (2) Pneumonia due to 2019 novel coronavirus: Code(s): U07.1 - COVID-19; J12.82 - Pneumonia due to coronavirus disease 2018 Status: Acute Assessment and Plan: Positive outpatient test 03/30/21 with symptom onset 10 days prior to presentation CXR shows Unchanged diffuse lung disease consistent with COVID 19 PNA, repeat this am Continue dexamethasone and remdesivir #10 Monitor LFTs while on remdesivir. ALT is normal at 52 Continue baricitinib #8 given increased oxygen demand Continue treatment with ceftriaxone and azithromycin for concomitant bacterial pneumonia given symptom onset and leukocytosis, DC received 5 days Sputum culture not performed due to oropharyngeal contamination Trend inflammatory markers, Ferritin 622, CRP 1.2, LDH 412, Dimer 1.37 Supportive care to include bronchodilators, expectorants, antipyretics, incentive spirometry Continue isolation precautions Patient has not been vaccinated for COVID-19 (3) Hypertension: Code(s): I10 - Essential (primary) hypertension Status: Acute Assessment and Plan: Blood pressures were reviewed and they are stable. Last BP 103/60 Blood pressure are soft Continue losartan, consider holding at this time Monitor blood pressures daily. (4) Hyperlipidemia: Code(s): E78.5 - Hyperlipidemia, unspecified Status: Acute Assessment and Plan: LFTs within normal limits. Continue statin (5) Chest pain: Code(s): R07.9 - Chest pain, unspecified Status: Acute Assessment and Plan: Complaints of intermittent chest pain Mostly when using the IS EKG, Trops, BNP, and Chest xray ordered, see below Trops <0.12, BNP 41, Chest xray minimal improvement of extensive patchy bilateral infiltrates EKG from 04/16/21 SB RBBB Could be related to covid Aspirin added, atorvastatin is on board along with Protonix Consider Echo depending on developments Time Spent With Patient Time with patient: Greater than 35 minutes Subjective Date/time seen: 04/16/21 06:45 Interval history: Date/Time: 04/07/21 21:30 Narrative: This is a very pleasant 65-year-old male with hypertension, hyperlipidemia, Lyme disease, and GERD who presented to the emergency department earlier today via private vehicle from home for evaluation of shortness of breath. He has not been feeling well for nearly 10 days with multiple symptoms to include generalized malaise, sore throat, congestion, decreased appetite, diarrhea, body aches, fever, and cough occasionally productive of clear sputum. He tested positive for COVID-19 at a local urgent care last Friday and he was prescribed doxycycline and prednisone at that time. He felt a bit better earlier on this week however over the last 2 days he has felt much worse with increasing shortness of breath, pleuritic chest pain, and a pretty continuous cough. On arrival to the emergency department today his SpO2 was 89% on room air and he is now on 2 L nasal cannula with an SpO2 in the low 90s. CTA of the chest showed diffuse lung disease consistent with COVID pneumonia and he is being admitted in this setting. He has not yet received a COVID vaccination. Date/time seen: 04/08/21 12:53 Vamsi Crowe is a 65-year-old male with a history of hypertension, hyperlipidemia, Lyme disease, and GERD who is seen in follow-up for COVID-19 pneumonia. He is starting to feel a bit better today. His shortness of breath has improved, though he does end
--- NOTE | 2021-04-16 06:45 | P.PNIM_ITS ---
Progress Note: A&P Assessment and Plan (1) Acute respiratory failure with hypoxia: Code(s): J96.01 - Acute respiratory failure with hypoxia Status: Acute Assessment and Plan: * Secondary to COVID pneumonia * No pulmonary embolism noted on chest CTA * sensitivity was moderately decreased due to motion in the segmental arteries, PE is felt to be unlikely. * down to room air sating 90% * Wean oxygen as tolerated * Goal sats 90% or above (2) Pneumonia due to 2019 novel coronavirus: Code(s): U07.1 - COVID-19; J12.82 - Pneumonia due to coronavirus disease 2018 Status: Acute Assessment and Plan: * Positive outpatient test 03/30/21 with symptom onset 10 days prior to presentation * CXR shows Unchanged diffuse lung disease consistent with COVID 19 PNA, repeat this am * Continue dexamethasone and remdesivir #10 * Monitor LFTs while on remdesivir. ALT is normal at 52 * Continue baricitinib #8 given increased oxygen demand * Continue treatment with ceftriaxone and azithromycin for concomitant bacterial pneumonia given symptom onset and leukocytosis, DC received 5 days * Sputum culture not performed due to oropharyngeal contamination * Trend inflammatory markers, Ferritin 622, CRP 1.2, LDH 412, Dimer 1.37 * Supportive care to include bronchodilators, expectorants, antipyretics, incentive spirometry * Continue isolation precautions * Patient has not been vaccinated for COVID-19 (3) Hypertension: Code(s): I10 - Essential (primary) hypertension Status: Acute Assessment and Plan: * Blood pressures were reviewed and they are stable. Last BP 103/60 * Blood pressure are soft * Continue losartan, consider holding at this time * Monitor blood pressures daily. (4) Hyperlipidemia: Code(s): E78.5 - Hyperlipidemia, unspecified Status: Acute Assessment and Plan: * LFTs within normal limits. * Continue statin (5) Chest pain: Code(s): R07.9 - Chest pain, unspecified Status: Acute Assessment and Plan: * Complaints of intermittent chest pain * Mostly when using the IS * EKG, Trops, BNP, and Chest xray ordered, see below * Trops <0.12, BNP 41, Chest xray minimal improvement of extensive patchy bilateral infiltrates * EKG from 04/16/21 SB RBBB * Could be related to covid * Aspirin added, atorvastatin is on board along with Protonix * Consider Echo depending on developments Time Spent With Patient Time with patient: Greater than 35 minutes Subjective Date/time seen: 04/16/21 06:45 Interval history: Date/Time: 04/07/21 21:30 Narrative: This is a very pleasant 65-year-old male with hypertension, hyperlipidemia, Lyme disease, and GERD who presented to the emergency department earlier today via private vehicle from home for evaluation of shortness of breath. He has not been feeling well for nearly 10 days with multiple symptoms to include generalized malaise, sore throat, congestion, decreased appetite, diarrhea, body aches, fever, and cough occasionally productive of clear sputum. He tested positive for COVID-19 at a local urgent care last Friday and he was prescribed doxycycline and prednisone at that time. He felt a bit better earlier on this week however over the last 2 days he has felt much worse with increasing shortness of breath, pleuritic chest pain, and a pretty continuous cough. On arrival to the emergency department today his SpO2 was 89% on room air and he is now on 2 L nasal cannula with an SpO2 in the low 90s. CTA of the chest showed diffuse
[2021-04-16 06:55] LABS: Basophils Percent Auto 0.1 % (0.2-1.2); Eosinophils Percent Auto 0.1 % (0-4.4); Hematocrit 42.4 % (42.0-52.0); Hemoglobin 14.5 g/dL (14.0-18.0); Immature Granulocyte Percent A 1.1 % (0-0.5); Lymphocytes Absolute Auto 0.92 K/mm3 (0.9-3.2); Lymphocytes Percent Auto 9.9 % (18.3-44.2); Mean Corpuscular HGB Conc 34.2 g/dl (32-36); Mean Corpuscular Hemoglobin 31.5 pg (26-34); Mean Platelet Volume 10.8 fl (7.4-10.4); Monocytes Absolute Auto 0.5 K/mm3 (0.1-0.6); Monocytes Percent Auto 5.6 % (2.6-8.5); Neutrophils Absolute Auto 7.8 K/mm3 (1.3-6.7); Neutrophils Percent Auto 83.2 % (45.5-73.1); Platelet Count Result 319 k/mm3 (150-375); Red Blood Count 4.61 M/mm3 (4.6-6.20); Red Cell Distribution Width 12.3 % (11.5-14.5); White Blood Count 9.3 K/mm3 (4.5-10.0)
[2021-04-16 07:19] LABS: Alanine Aminotransferase 52 U/L (4-50); Albumin Level 3.1 g/dL (3.5-5.1); Alkaline Phosphatase 48 U/L (38-126); Anion Gap 8 mmol/L (8-16); Aspartate Amino Transferase 30 U/L (17-59); Bilirubin,Total 0.6 mg/dL (0.2-1.3); Blood Urea Nitrogen 24 mg/dL (9-20); CRP 1.2 mg/dL (<1.0); Calcium 8.8 mg/dL (8.4-10.2); Carbon Dioxide 22 mmol/L (22-30); Chloride 103 mmol/L (98-107); Estimated CRCL calculation 73 ml/min; Estimated Glomerular Filt Rate > 60; Glucose 106 mg/dL (65-110); Lactate Dehydrogenase 412 U/L (313-618); Magnesium 2.6 mg/dL (1.6-2.3); Potassium 4.2 mmol/L (3.4-5.0); Sodium 133 mmol/L (137-145)
[2021-04-16 07:21] LABS: D Dimer 1.37 ug/mL (<0.48)
[2021-04-16 07:25] LABS: INR 1.2; Prothrombin Time 14.9 Seconds (11.1-14.7)
[2021-04-16] MEDS: LOSARTAN POTASSIUM 50 MG TABLET PO (08:39)
[2021-04-16] MEDS: PANTOPRAZOLE 40 MG TABLET PO (08:39)
[2021-04-16] MEDS: DEXAMETHASONE 2 MG TABLET 6 MG PO ×2 (08:40→16:14)
[2021-04-16] MEDS: ATORVASTATIN 10 MG TABLET PO (08:40)
[2021-04-16] MEDS: ENOXAPARIN 40 MG/0.4 ML SYRINGE SUB-Q (08:40)
[2021-04-16] MEDS: guaiFENesin 12 HR 600 MG TABCR PO (08:40)
--- NOTE | 2021-04-16 11:01 | ECG_ITS ---
Measurements Intervals [place] Rate: 51 P: 25 MT: 177 QRS: -10 QRSD: 106 T: -7 QT: 423 QTc: 390 Interpretive Statements SINUS BRADYCARDIA INCOMPLETE RIGHT BUNDLE BRANCH BLOCK VOLTAGE CRITERIA FOR LVH BORDERLINE T WAVE ABNORMALITY- INFERIOR LEADS BORDERLINE ECG Electronically Signed On 04-16-2021 11:43:05 COLLECTION ANALYST by Seth Barlow D.O.
[2021-04-16] MEDS: REMDESIVIR 100 MG/NS 250 ML 100 MG/250 ML BAG 250 MG IVPB (11:25)
[2021-04-16] MEDS: BARICITINIB 2 MG TABLET 4 MG PO (11:25)
[2021-04-16 12:53] LABS: NT Pro B Type Natriuretic Pept 41 pg/mL (5-100)
[2021-04-16 12:56] LABS: Troponin I < 0.012 ng/mL (0.000-0.034)
[2021-04-17] VITALS: BP 103/56; PULSE 57; RESP 18; TEMP 36.7; O2SAT 91
[2021-04-17 04:00] VITALS: BP 101/61; PULSE 50; RESP 18; TEMP 36.6; O2SAT 93
[2021-04-17 06:45] LABS: Basophils Percent Auto 0.1 % (0.2-1.2); Hematocrit 41.4 % (42.0-52.0); Immature Granulocyte Absolute 0.09 K/mm3 (0.00-0.031); Immature Granulocyte Percent A 0.9 % (0-0.5); Lymphocytes Absolute Auto 0.87 K/mm3 (0.9-3.2); Lymphocytes Percent Auto 8.3 % (18.3-44.2); Mean Corpuscular HGB Conc 33.8 g/dl (32-36); Mean Corpuscular Hemoglobin 30.9 pg (26-34); Mean Corpuscular Volume 91.4 fl (80-100); Mean Platelet Volume 10.7 fl (7.4-10.4); Monocytes Absolute Auto 0.5 K/mm3 (0.1-0.6); Monocytes Percent Auto 4.6 % (2.6-8.5); Neutrophils Percent Auto 86.1 % (45.5-73.1); Platelet Count Result 302 k/mm3 (150-375); Red Blood Count 4.53 M/mm3 (4.6-6.20); Red Cell Distribution Width 12.4 % (11.5-14.5); White Blood Count 10.4 K/mm3 (4.5-10.0)
[2021-04-17 06:55] LABS: D Dimer 1.34 ug/mL (<0.48)
[2021-04-17 07:01] LABS: Alanine Aminotransferase 60 U/L (4-50); Alkaline Phosphatase 45 U/L (38-126); Anion Gap 8 mmol/L (8-16); Aspartate Amino Transferase 30 U/L (17-59); Bilirubin,Total 0.6 mg/dL (0.2-1.3); Blood Urea Nitrogen 25 mg/dL (9-20); CRP 0.8 mg/dL (<1.0); Calcium 8.6 mg/dL (8.4-10.2); Carbon Dioxide 23 mmol/L (22-30); Chloride 102 mmol/L (98-107); Estimated CRCL calculation 73 ml/min; Estimated Glomerular Filt Rate > 60; Glucose 108 mg/dL (65-110); Lactate Dehydrogenase 358 U/L (313-618); Magnesium 2.6 mg/dL (1.6-2.3); Potassium 4.2 mmol/L (3.4-5.0); Sodium 133 mmol/L (137-145)
--- NOTE | 2021-04-17 07:30 | PM.DS ---
DS: Admitting Diagnosis Discharge Date 04/17/21729 Admitting Diagnosis COVID-19 PNA DS: Discharge Diagnosis Discharge Diagnosis (1) Acute respiratory failure with hypoxia: Code(s): J96.01 - Acute respiratory failure with hypoxia Status: Acute Assessment and Plan: Secondary to COVID pneumonia No pulmonary embolism noted on chest CTA sensitivity was moderately decreased due to motion in the segmental arteries, PE is felt to be unlikely. down to room air sating 90% Wean oxygen as tolerated Goal sats 90% or above (2) Pneumonia due to 2019 novel coronavirus: Code(s): U07.1 - COVID-19; J12.82 - Pneumonia due to coronavirus disease 2019 Status: Acute Assessment and Plan: Positive outpatient test 03/30/21 with symptom onset 10 days prior to presentation CXR shows Unchanged diffuse lung disease consistent with COVID 19 PNA, repeat this am Continue dexamethasone and remdesivir #10, course completed Monitor LFTs while on remdesivir. ALT is normal at 52 Continue baricitinib #9 given increased oxygen demand Continue treatment with ceftriaxone and azithromycin for concomitant bacterial pneumonia given symptom onset and leukocytosis, DC received 5 days Sputum culture not performed due to oropharyngeal contamination Trend inflammatory markers, Ferritin 622, CRP 1.2, LDH 412, Dimer 1.37 Supportive care to include bronchodilators, expectorants, antipyretics, incentive spirometry Continue isolation precautions Patient has not been vaccinated for COVID-19 (3) Hypertension: Code(s): I10 - Essential (primary) hypertension Status: Acute Assessment and Plan: Blood pressures were reviewed and they are stable. Last BP 101/61 Blood pressure are soft Continue losartan, consider holding at this time Monitor blood pressures daily. (4) Hyperlipidemia: Code(s): E78.5 - Hyperlipidemia, unspecified Status: Acute Assessment and Plan: LFTs within normal limits. Continue statin (5) Chest pain: Code(s): R07.9 - Chest pain, unspecified Status: Acute Assessment and Plan: Complaints of intermittent chest pain Mostly when using the IS EKG, Trops, BNP, and Chest xray ordered, see below Trops <0.12, BNP 41, Chest xray minimal improvement of extensive patchy bilateral infiltrates EKG from 04/16/21 SB RBBB Could be related to covid Aspirin added, atorvastatin is on board along with Protonix Consider Echo depending on developments DS: Summary Hospital Course Hospital Course: Patient is a 65-year-old male with a past medical history of hypertension, hyperlipidemia, Lyme disease and GERD who presented the emergency room for evaluation of shortness of breath. Patient stated that he has not been feeling well for few weeks prior to coming to the hospital. Patient went to urgent care and has a positive COVID on 03/30/2021. Patient was treated with IV remdesivir and dexamethasone. Baricitinib was also added due to increased oxygen demand. Supplemental oxygen was provided and did get up as high as 15 L high-flow cannula. Patient has been says bleed wean to room air. Inflammatory markers have been on trend since admission and are currently stable. Blood pressure has been stable and heart rate has been showing sinus Paul. Patient did have some issues with chest pain however workup was unrevealing. Chest x-ray from yesterday showed minimal improvement patchy bilateral pneumonia. Labs have also remained stable throughout the entire visit. ALT is slightly elevated however is stable. He denies chest pain, shortness of breath, nausea, vomiting, diarrhea, constipation, weakness, fatigue. Patient does have some issues with dizziness however it seems to be resolved with rest. Saturations have also remained stable even with slight activity. Will get a walking home O2 eval. Education was given to patient along with vaccination ed
--- NOTE | 2021-04-17 07:30 | P.DS_ITS ---
DS: Admitting Diagnosis Discharge Date 04/17/21729 Admitting Diagnosis COVID-19 PNA DS: Discharge Diagnosis Discharge Diagnosis (1) Acute respiratory failure with hypoxia: Code(s): J96.01 - Acute respiratory failure with hypoxia Status: Acute Assessment and Plan: * Secondary to COVID pneumonia * No pulmonary embolism noted on chest CTA * sensitivity was moderately decreased due to motion in the segmental arteries, PE is felt to be unlikely. * down to room air sating 90% * Wean oxygen as tolerated * Goal sats 90% or above (2) Pneumonia due to 2019 novel coronavirus: Code(s): U07.1 - COVID-19; J12.82 - Pneumonia due to coronavirus disease 2019 Status: Acute Assessment and Plan: * Positive outpatient test 03/30/21 with symptom onset 10 days prior to presentation * CXR shows Unchanged diffuse lung disease consistent with COVID 19 PNA, repeat this am * Continue dexamethasone and remdesivir #10, course completed * Monitor LFTs while on remdesivir. ALT is normal at 52 * Continue baricitinib #9 given increased oxygen demand * Continue treatment with ceftriaxone and azithromycin for concomitant bacterial pneumonia given symptom onset and leukocytosis, DC received 5 days * Sputum culture not performed due to oropharyngeal contamination * Trend inflammatory markers, Ferritin 622, CRP 1.2, LDH 412, Dimer 1.37 * Supportive care to include bronchodilators, expectorants, antipyretics, incentive spirometry * Continue isolation precautions * Patient has not been vaccinated for COVID-19 (3) Hypertension: Code(s): I10 - Essential (primary) hypertension Status: Acute Assessment and Plan: * Blood pressures were reviewed and they are stable. Last BP 101/61 * Blood pressure are soft * Continue losartan, consider holding at this time * Monitor blood pressures daily. (4) Hyperlipidemia: Code(s): E78.5 - Hyperlipidemia, unspecified Status: Acute Assessment and Plan: * LFTs within normal limits. * Continue statin (5) Chest pain: Code(s): R07.9 - Chest pain, unspecified Status: Acute Assessment and Plan: * Complaints of intermittent chest pain * Mostly when using the IS * EKG, Trops, BNP, and Chest xray ordered, see below * Trops <0.12, BNP 41, Chest xray minimal improvement of extensive patchy bilateral infiltrates * EKG from 04/16/21 SB RBBB * Could be related to covid * Aspirin added, atorvastatin is on board along with Protonix * Consider Echo depending on developments DS: Summary Hospital Course Hospital Course: Patient is a 65-year-old male with a past medical history of hypertension, hyperlipidemia, Lyme disease and GERD who presented the emergency room for evaluation of shortness of breath. Patient stated that he has not been feeling well for few weeks prior to coming to the hospital. Patient went to urgent care and has a positive COVID on 03/30/2021. Patient was treated with IV remdesivir and dexamethasone. Baricitinib was also added due to increased oxygen demand. Supplemental oxygen was provided and did get up as high as 15 L high-flow cannula. Patient has been says bleed wean to room air. Inflammatory markers have been on trend since admission and are currently stable. Blood pressure has been stable and heart rate has been showing sinus Paul. Patient did have some issues with chest pain however workup was unrevealing. Chest x- ray from yesterday showed minimal improvement patchy bilateral pneumonia. Labs have also remaine
[2021-04-17 08:00] VITALS: BP 117/66; PULSE 50; RESP 18; TEMP 36.1; O2SAT 93
[2021-04-17] MEDS: ATORVASTATIN 10 MG TABLET PO (10:28)
[2021-04-17] MEDS: BARICITINIB 2 MG TABLET 4 MG PO (10:28)
[2021-04-17] MEDS: LOSARTAN POTASSIUM 50 MG TABLET PO (10:28)
[2021-04-17] MEDS: PANTOPRAZOLE 40 MG TABLET PO (10:28)
[2021-04-17] MEDS: DEXAMETHASONE 2 MG TABLET 6 MG PO (10:28)
[2021-04-17] MEDS: ENOXAPARIN 40 MG/0.4 ML SYRINGE SUB-Q (10:29)
[2021-04-17] MEDS: guaiFENesin 12 HR 600 MG TABCR PO (10:29)
[2021-04-17] MEDS: ASPIRIN 81 MG ENTERIC TABLET PO (10:31)
[2021-04-17 11:15] VITALS: O2SAT 95
[2021-04-17 11:18] VITALS: O2SAT 91
[2021-04-17 11:30] VITALS: O2SAT 95
--- NOTE | 2021-04-17 12:40 | HOMEO2EVAL ---
Evaluation was performed at [facility] Home Oxygen Evaluation RC: Home Oxygen (O2) Evaluation Start: 04/17/21 07:16 Freq: ONCE Status: Active Protocol: RPE Activity Type Activity Date Activity User E-Sign Co-Sign Detail Recorded Client Recorded Date Recorded By Document 04/17/21 11:15 ANDI [email or web address] 04/17/21 12:40 ANDI Document 04/17/21 11:18 ANDI [email or web address] 04/17/21 12:40 ANDI Document 04/17/21 11:30 ANDI [email or web address] 04/17/21 12:40 ANDI 04/17/21 04/17/21 04/17/21 11:15 11:18 11:30 Home O2 Evaluation Test Phase Resting Exercise Resting Oxygen Delivery Room Air Room Air Room Air Pulse Oximetry (90-100 %) 95 91 95 Home Oxygen Evaluation Comments NO HOME O2 NEEDED Treatment Charges O2 Evaluation - Inpatient
--- NOTE | 2021-04-17 12:40 | PCRCNOTE ---
HOME O2 EVAL DONE, NO HOME O2 NEEDED AT THIS TIME.
== END 2021-04-17 13:40 | disposition home or self-care (01) | DRG 177 ==
LOC: ANHED 14:47 → ANH3MEDSUR 04-08 07:06
PROVIDERS: General Practice; Nurse Practitioner; Physician Assistant; Admitting Provider Family Medicine; Emergency Provider Emergency Medicine; PCP Internal Medicine; Visit Provider Physician Assistant
DX: U07.1 COVID-19 (principal); J12.82 Pneumonia due to coronavirus disease 2019; J15.9 Unspecified bacterial pneumonia; J96.01 Acute respiratory failure with hypoxia; A69.20 Lyme disease, unspecified; I10 Essential (primary) hypertension; E78.5 Hyperlipidemia, unspecified; K21.9 Gastro-esophageal reflux disease without esophagitis
CPT/HCPCS: 36415; 36600; 71045; 71275; 80053; 82375; 82565; 82728; 82805; 83050; 83615; 83735; 83880; 84145; 84450; 84460; 84484; 85025; 85027; 85380; 85610; 85730; 86140; 87070; 87205; 93005; 94618; 94640; 96374; 99291; A9270; J0456; J0696; J1100; J1650; J7030; J8540; Q9967

== ENCOUNTER 2022-07-22 10:53 | Emergency (ER) | payer BC, SELFPAY ==
[2022-07-22 11:18] VITALS: BP 153/80; PULSE 82; RESP 18; TEMP 36.9; O2SAT 99
--- NOTE | 2022-07-22 11:39 | ED.URI ---
HPI - URI/Sore Throat General Chief Complaint: Upper Respiratory Infection Stated Complaint: sorethroat,cold symptoms Source: patient and RN notes reviewed Mode of arrival: ambulatory Limitations: no limitations History of Present Illness HPI Narrative: 67 y/o male with hx HTN presented for c/o sore throat and runny nose x2 days. Patient is concerned for covid because he was at a last week. Hx hospitalization due to covid. Has not taken a test at home. Denies sob, wheezing, n/v/d/f/c. Not taking anything for symptoms. MD elicited complaint: cough Related Data Allergies Allergy/AdvReac Type Severity Reaction Status Date / Time No Known Allergies Allergy Verified 07/22/22 11:41 Review of Systems Review of Systems: CONSTITUTIONAL: Denies malaise, chills, sweats, fever EYES: Denies visual changes, redness, or discharge ENT: Reports rhinorrhea, congestion Denies sinus pain, otalgia CARDIOVASCULAR: Denies chest pain, palpitations, edema RESPIRATORY: Denies dyspnea GASTROINTESTINAL: Denies abdominal pain, nausea, vomiting, diarrhea SKIN: Denies rash or itching MUSCULOSKELETAL: Denies myalgia NEUROLOGIC: Denies headache PMFSH Past Medical History Medical History Gastroesophageal reflux disease Hyperlipidemia Hypertension Lyme disease (09/2020) Surgical History Surgical History History of arthroscopy of right knee Family History Family History Other Hypertension Social History Social History Social History: The patient is and lives with his in [place]. 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 Nonsmoker. Consumes approximately 3 to 4 alcoholic beverages a week. No illicit substance use. He designates his , Princess Crowe, as his surrogate decision maker. Code status: Full code. Exam Narrative: GENERAL: well-appearing, nontoxic EYES: PERRLA, conjunctivae clear ENT: Mucous membranes moist. TMs pearly brown with dull light reflex bilaterally; no tragal tenderness. Oropharynx without erythema, lesions or exudate, no drooling, no hoarseness, no trismus, uvula midline. CHEST: Clear to auscultation, breath sounds equal. No wheezing, rhonchi, rales, or stridor. No respiratory distress, speaks in full sentences. HEART: Regular rate and rhythm. No murmur heard. SKIN: Warm, dry, no rash. NEURO: Alert and oriented x3. PSYCH: Normal mood and affect Course Course Emergency Course: Patient is aware of diagnosis, understands and agrees to treatment plan. Anticipatory guidance given. Patient agrees to follow-up as directed and is aware of reasons to seek care at the emergency department. Portions of this record may have been created with voice recognition software Level of Care: Express Care Visit Vital Signs Vital signs: Vital Signs Temperature 98.4 F 07/22/22 11:18 Pulse Rate 82 07/22/22 11:18 Respiratory Rate 18 07/22/22 11:18 Blood Pressure 153/80 H 07/22/22 11:18 Pulse Oximetry 99 07/22/22 11:18 Oxygen Delivery Room Air 07/22/22 11:18 Temperature 98.4 F 07/22/22 11:18 Pulse Rate 82 07/22/22 11:18 Respiratory Rate 18 07/22/22 11:18 Blood Pressure 153/80 H 07/22/22 11:18 Pulse Oximetry 99 07/22/22 11:18 Oxygen Delivery Room Air 07/22/22 11:18 reviewed MDM - URI/Sore Throat MDM Narrative Medical decision making narrative: Discussed negative results of test with patient. Patient repeatedly asked if the COVID test was accurate. Advised the possibility of a false negative test, however given his presenting symptoms I support the negative test result reading. Advised supportive measures and signs/symptoms to go to the ER. Pt is appropriate for outpt treatment and f/u. Differential Diagnosis Differential diagnosis: Like
== END 2022-07-22 12:17 | disposition home or self-care (01) ==
PROVIDERS: Emergency Provider Nurse Practitioner Family
DX: J06.9 Acute upper respiratory infection, unspecified (principal); Z20.822 Contact with and (suspected) exposure to COVID-19; K21.9 Gastro-esophageal reflux disease without esophagitis; E78.5 Hyperlipidemia, unspecified; I10 Essential (primary) hypertension
CPT/HCPCS: 87081; 87426; 87804; 87880; 99213; C9803; G0463

== ENCOUNTER 2023-06-23 13:59 | Outpatient (CLI) | payer BC, SELFPAY ==
--- NOTE | ~2023-06-23 | MR_ITS ---
EXAMINATION: MR knee LT wo con DATE: 06/23/2023 15:03 INDICATION: 3 weeks of anterior left knee pain and swelling TECHNIQUE: Magnetic resonance imaging (MRI) of the left knee was performed without intravenous contra st. Sequences included coronal PD-weighted FSE, coronal PD-weighted FS FSE, sagittal T2-weighted FSE , sagittal PD-weighted FS FSE and axial PD weighted fat saturated FSE. COMPARISON: None. FINDINGS: Medial compartment: Complex tear extending to the inferior articular surface of the body and posterior horn of the medial meniscus and with radial component extending across the free edge at the junction of the posterior h orn and posterior body. Small regions of shallow chondral ulceration versus fissuring without degener ative subchondral changes at the lateral margin of the anterior weightbearing medial femoral condyle and along the medial margin of the posterior weightbearing medial femoral condyle. Normal cartilage a t the medial tibial plateau. Lateral compartment: Lateral meniscus is normal. Articular cartilage is normal. Patellofemoral compartment: Partial thickness chondral fissuring along the inferior aspect of the lateral patellar facet with tin y focus of underlying subarticular edema-like signal change. Additional mild partial-thickness chondr al fissuring without degenerative subchondral changes at the central aspect of the medial patellar fa cet. Additional partial thickness chondral fissuring without degenerative subchondral changes at the central aspect of the medial trochlea. Ligaments and tendons: Anterior and posterior cruciate ligaments are normal. The medial collateral ligament and fibular lulu ateral ligament complex are normal. Tiny focus of enthesopathic ossification at the distalmost terry ceps tendon. The extensor mechanism is otherwise unremarkable. The visualized medial and lateral hams tring tendons as well as the iliotibial band are normal. Fluid: Physiologic amount of fluid in the joint space. No loose osteochondral bodies identified. Osseous/other: There is marrow edema surrounding a linear low signal intensity fracture plane which extends and rela tively close proximity the mesial scar underlying the medial tibial plateau. No other fractures ident ified. No pathologic marrow replacing process. There is likely reactive mild subcutaneous edema overl letitia the anteromedial aspect of the medial tibial plateau. IMPRESSION: 1. Nondisplaced fracture at the medial metaphyseal region of the proximal tibia. 2. Complex medial meniscal tear. 3. Mild osteoarthritis in the medial and patellofemoral compartments more recent moderate grade chond ral malacia as detailed above. Reviewed, dictated and finalized at location A. IMPRESSION: 1. Nondisplaced fracture at the medial metaphyseal region of the proximal tibia . 2. Complex medial meniscal tear. 3. Mild osteoarthritis in the medial and patellofemoral compartments more recen t moderate grade chondral malacia as detailed above.
== END 2023-06-23 14:00 ==
LOC: GOSHIMG 14:01
PROVIDERS: PCP Nurse Practitioner Family; Visit Provider Nurse Practitioner Family
DX: M17.12 Unilateral primary osteoarthritis, left knee (principal); S83.232A Complex tear of medial meniscus, current injury, left knee, initial encounter; X58.XXXA Exposure to other specified factors, initial encounter
CPT/HCPCS: 73721

== ENCOUNTER 2024-01-27 15:37 | Outpatient (CLI) | payer OTHER, SELFPAY ==
--- NOTE | ~2024-01-27 | XR_ITS ---
Left Shoulder Technique: AP and scapular Y views were obtained. Clinical History: Arthralgia Findings: No fracture or dislocation is seen. Osseous alignment is anatomic. The glenohumeral joint i s intact. There is mild AC joint degenerative change. Soft tissues are unremarkable. Impression: Mild AC joint degenerative change. Reviewed, dictated and finalized at location . Impression: Mild AC joint degenerative change.
--- NOTE | ~2024-01-27 | XR_ITS ---
Right Shoulder Technique: AP and scapular Y views were obtained. Clinical History: Arthralgia Findings: No fracture or dislocation is seen. Osseous alignment is anatomic. The glenohumeral joint i s intact. There is moderate AC joint degenerative change. Soft tissues are unremarkable. Impression: Moderate AC joint degenerative change. Reviewed, dictated and finalized at location . Impression: Moderate AC joint degenerative change.
--- NOTE | ~2024-01-27 | XR_ITS ---
Right Hand Technique: PA and lateral views were obtained. Clinical History: Arthralgia Findings: No acute fracture or dislocation is seen. Osseous alignment is anatomic. There is mild to m oderate degenerative change of the first MCP joint.. Soft tissues are unremarkable. Impression: [id number] degenerative changes of the first MCP joint. Reviewed, dictated and finalized at location . Impression: [id number] degenerative changes of the first MCP joint.
--- NOTE | ~2024-01-27 | XR_ITS ---
[id number] Ordering provider: Jessenia Bruce, PA History: . ARTHRALGIA . Comparison: None. FINDINGS: VERTEBRAL BODIES: Normal height and alignment. No visible fracture or subluxation. The dens is intact . DISK SPACES: Narrowing at the level of C5-C6 and C6-C7. Uncovertebral joint osteoarthritic changes of the 2 levels. Multilevel facet joint disease. PARASPINOUS SOFT TISSUES: No prevertebral soft tissue swelling. IMPRESSION: No acute osseous abnormality cervical spine. Reviewed, dictated and finalized at location A.
--- NOTE | ~2024-01-27 | XR_ITS ---
Left Hand Technique: PA and lateral views were obtained. Clinical History: Arthralgia Findings: No acute fracture or dislocation is seen. Osseous alignment is anatomic. Joint spaces are p reserved. Soft tissues are unremarkable. Impression: Unremarkable left hand. Reviewed, dictated and finalized at location M. Impression: Unremarkable left hand.
== END 2024-01-27 15:38 | disposition home or self-care (01) ==
PROVIDERS: PCP Nurse Practitioner Family; Visit Provider Physician Assistant Medical
DX: M19.011 Primary osteoarthritis, right shoulder (principal); M19.012 Primary osteoarthritis, left shoulder; M18.11 Unilateral primary osteoarthritis of first carpometacarpal joint, right hand; M79.642 Pain in left hand; M54.2 Cervicalgia; M62.81 Muscle weakness (generalized); R68.2 Dry mouth, unspecified; R53.83 Other fatigue
CPT/HCPCS: 72040; 73030; 73120